=== PATIENT | male | born 1960 | race African-American/Black ===

== ENCOUNTER 2016-06-28 15:45 | Emergency (ER) | payer MEDICARE, MEDICAID ==
[~2016-06-28] VITALS: Ht 162.6 cm; Wt 60.0 kg
[~2016-06-28 15:45] MED LIST: AMLO10TA80 PO; Benazepril Hcl PO
[2016-06-28 17:22] VITALS: BP 137/72
== END 2016-06-28 17:34 | disposition home or self-care (01) ==
LOC: ER 15:46
DX: T82.838A Hemorrhage due to vascular prosthetic devices, implants and grafts, initial encounter (principal); N18.6 End stage renal disease; I51.9 Heart disease, unspecified; Z99.2 Dependence on renal dialysis; Z95.1 Presence of aortocoronary bypass graft; Z88.3 Allergy status to other anti-infective agents; Z98.890 Other specified postprocedural states; Y84.1 Kidney dialysis as the cause of abnormal reaction of the patient, or of later complication, without mention of misadventure at the time of the procedure; Y92.018 Other place in single-family (private) house as the place of occurrence of the external cause
CPT/HCPCS: 99283

== ENCOUNTER 2016-10-16 10:41 | Emergency (ER) | payer MEDICARE, MEDICAID ==
[~2016-10-16] VITALS: Ht 170.2 cm; Wt 70.0 kg
[2016-10-16 11:29] LABS: HEMATOCRIT. 33.4 % (42.0-52.0); HEMOGLOBIN. 10.6 g/dL (14.0-18.0); MEAN CORPUSCULAR HEMOGLOBIN 32.6 pg (28.0-32.0); MEAN CORPUSCULAR VOLUME 102.4 fL (80.0-94.0); MEAN PLATELET VOLUME 6.6 fl (7.4-10.4); PLATELET 264 x1000/uL (130-400); RED BLOOD CELL COUNT 3.26 mill/uL (4.7-6.1); RED CELL DISTRIBUTION WIDTH 15.3 % (11.6-14.6)
[2016-10-16 11:33] LABS: CHLORIDE 108 mEq/L (98-107)
[2016-10-16 11:41] LABS: CARBON DIOXIDE 24 mEq/L (21-32); INR 1.1; PROTHROMBIN TIME 11.1 sec
[2016-10-16 11:57] LABS: PLATELET ESTIMATE NORMAL
[2016-10-16 12:44] VITALS: BP 169/86
== END 2016-10-16 12:45 | disposition home or self-care (01) ==
LOC: ER 10:41
DX: T82.838A Hemorrhage due to vascular prosthetic devices, implants and grafts, initial encounter (principal); I13.2 Hypertensive heart and chronic kidney disease with heart failure and with stage 5 chronic kidney disease, or end stage renal disease; N18.6 End stage renal disease; Z99.2 Dependence on renal dialysis; Z88.1 Allergy status to other antibiotic agents; Z95.1 Presence of aortocoronary bypass graft; Y84.1 Kidney dialysis as the cause of abnormal reaction of the patient, or of later complication, without mention of misadventure at the time of the procedure; Y92.89 Other specified places as the place of occurrence of the external cause
CPT/HCPCS: 36415; 80053; 85025; 85610; 99284

== ENCOUNTER 2016-10-22 11:38 | Emergency (ER) | payer MEDICARE, MEDICAID ==
[~2016-10-22] VITALS: Ht 160 cm; Wt 63.0 kg
[2016-10-22 11:43] VITALS: BP 170/78
== END 2016-10-22 14:24 | disposition home or self-care (01) ==
LOC: ER 14:04
DX: T82.41XA Breakdown (mechanical) of vascular dialysis catheter, initial encounter (principal); I10 Essential (primary) hypertension; Z88.0 Allergy status to penicillin; Z99.2 Dependence on renal dialysis
CPT/HCPCS: 99281

== ENCOUNTER 2017-03-06 11:42 | Emergency (ER) | payer MEDICARE, MEDICAID ==
[~2017-03-06] VITALS: Ht 160 cm; Wt 64.0 kg
[2017-03-06] MEDS ORDERED: SIMETHICONE 80MG TABLET CHEW PO PRN (14:30)
[2017-03-06 16:11] VITALS: BP 135/87
== END 2017-03-06 17:07 | disposition home or self-care (01) ==
LOC: ER 12:13
DX: R10.30 Lower abdominal pain, unspecified (principal); R19.7 Diarrhea, unspecified; I12.0 Hypertensive chronic kidney disease with stage 5 chronic kidney disease or end stage renal disease; N18.6 End stage renal disease; Z99.2 Dependence on renal dialysis; Z95.1 Presence of aortocoronary bypass graft; Z88.0 Allergy status to penicillin; Z87.891 Personal history of nicotine dependence
CPT/HCPCS: 74000; 99283

== ENCOUNTER 2018-09-22 11:16 | Inpatient (IN) | payer MEDICARE, MEDICAID ==
[~2018-09-22] VITALS: Ht 160 cm; Wt 63.5 kg
[2018-09-22] MEDS ORDERED: MORPHINE SULFATE 4 MG/ML CPJ (NOT FOR IM USE) IV STA (12:40)
[2018-09-22] MEDS ORDERED: ONDANSETRON HCL 4MG/2ML INJ IV STA (12:40)
[2018-09-22] MEDS ORDERED: PANTOPRAZOLE SODIUM 40 MG/VIAL IV STA (12:40)
[2018-09-22 12:51] LABS: EOSINOPHILS % 2.5 % (0.0-5.0); HEMATOCRIT. 36.8 % (42.0-52.0); LYMPHOCYTES % 7.5 % (20.0-50.0); MEAN CORPUSCULAR HEMOGLOBIN 32.3 pg (28.0-32.0); MEAN CORPUSCULAR VOLUME 99.3 fL (80.0-94.0); MEAN PLATELET VOLUME 7.1 fl (7.4-10.4); MONOCYTES % 10.6 % (2.0-8.0); NEUTROPHILS % 78.4 % (40.0-76.0); PLATELET 252 x1000/uL (130-400); RED BLOOD CELL COUNT 3.71 mill/uL (4.7-6.1); RED CELL DISTRIBUTION WIDTH 17.9 % (11.6-14.6)
[2018-09-22 13:00] LABS: CHLORIDE 106 mEq/L (98-107)
[2018-09-22 13:08] LABS: INR 1.1; PARTIAL THROMBOPLASTIN TIME 33.2 sec (23.4-31.0); PROTHROMBIN TIME 10.9 sec (9.6-11.0)
[2018-09-22] MEDS ORDERED: DIPHENHYDRAMINE 50MG/ML VIAL IV ONE (13:15)
[2018-09-22] MEDS ORDERED: ONDANSETRON HCL 4MG/2ML INJ IV PRN (14:30)
[2018-09-22] MEDS ORDERED: METRONIDAZOLE 500 MG PREMIX 100 ML IV ONE (14:30)
[2018-09-22] MEDS ORDERED: LEVOFLOXACIN 500MG PREMIX 100 ML IV ONE (14:30)
[2018-09-22] MEDS ORDERED: ACETAMINOPHEN 325MG TABLET PO PRN (14:30)
[2018-09-22] MEDS ORDERED: MAGNESIUM/ALUMINUM HYDROXIDE/SIMETHICONE 30ML UDC PO PRN (14:30)
[2018-09-22 16:30] VITALS: BP 135/77
[2018-09-22] MEDS ORDERED: LEVOFLOXACIN 500MG PREMIX 100 ML IV SCH (18:00)
[2018-09-22] MEDS: BENAZEPRIL 10MG TABLET PO SCH (18:07)
[2018-09-22] MEDS: DIPHENHYDRAMINE 50MG/ML VIAL IV PRN ×2 (18:07→20:15)
[2018-09-22] MEDS: AMLODIPINE 10MG TABLET PO SCH (18:08)
[2018-09-22] MEDS ORDERED: METO25TA6 MT (18:41)
[2018-09-22] MEDS ORDERED: APIX2.5T MT (18:41)
[2018-09-22] MEDS ORDERED: [UNRECOGNIZED DRUG - OTHER] (18:41)
[2018-09-22] MEDS ORDERED: MORPHINE SULFATE 2 MG/ML CPJ (NOT FOR IM USE) IV PRN (19:00)
[2018-09-22 20:00] VITALS: BP 110/63
[2018-09-22] MEDS: METRONIDAZOLE 500 MG PREMIX 100 ML IV SCH (20:14)
[2018-09-22] MEDS: PANTOPRAZOLE SODIUM 40 MG/VIAL IV SCH (20:15)
[2018-09-23] VITALS: BP 100/57
[2018-09-23 04:00] VITALS: BP 101/53
[2018-09-23 06:42] LABS: BASOPHILS % 0.6 % (0.0-2.0); EOSINOPHILS % 5.3 % (0.0-5.0); HEMATOCRIT. 30.7 % (42.0-52.0); LYMPHOCYTES % 9.1 % (20.0-50.0); MEAN CORPUSCULAR HEMOGLOBIN 32.3 pg (28.0-32.0); MEAN CORPUSCULAR VOLUME 99.2 fL (80.0-94.0); MEAN PLATELET VOLUME 7.2 fl (7.4-10.4); MONOCYTES % 14.6 % (2.0-8.0); NEUTROPHILS % 70.4 % (40.0-76.0); PLATELET 232 x1000/uL (130-400); RED CELL DISTRIBUTION WIDTH 18.6 % (11.6-14.6)
[2018-09-23 07:49] LABS: CHLORIDE 106 mEq/L (98-107)
[2018-09-23 08:00] VITALS: BP 95/50
[2018-09-23] MEDS: DIPHENHYDRAMINE 50MG/ML VIAL IV PRN ×3 (08:30→20:29)
[2018-09-23] MEDS: METRONIDAZOLE 500 MG PREMIX 100 ML IV SCH ×2 (08:30→22:18)
[2018-09-23] MEDS: PANTOPRAZOLE SODIUM 40 MG/VIAL IV SCH ×2 (08:30→20:28)
[2018-09-23] MEDS: BENAZEPRIL 10MG TABLET PO SCH (08:31)
[2018-09-23] MEDS: AMLODIPINE 10MG TABLET PO SCH (08:31)
[2018-09-23] MEDS ORDERED: HYDROCODONE/ACETAMINOPHEN 5/325MG TABLET PO PRN (10:45)
[2018-09-23 11:45] VITALS: BP 104/61
[2018-09-23 15:48] VITALS: BP 105/64
[2018-09-23 20:00] VITALS: BP 103/57
[2018-09-24] VITALS: BP 108/80
[2018-09-24 04:00] VITALS: BP 102/58
[2018-09-24 06:22] LABS: HEMATOCRIT 33.3 % (42.0-52.0); HEMOGLOBIN 10.9 g/dL (14.0-18.0); MEAN CORPUSCULAR HEMOGLOBIN 32.5 pg (28.0-32.0); MEAN CORPUSCULAR VOLUME 98.9 fL (80.0-94.0); PLATELET 252 x1000/uL (130-400); RED BLOOD CELL COUNT 3.37 mill/uL (4.7-6.1); RED CELL DISTRIBUTION WIDTH 18.7 % (11.6-14.6)
[2018-09-24 08:00] VITALS: BP 110/65
[2018-09-24] MEDS: AMLODIPINE 10MG TABLET PO SCH (09:00)
[2018-09-24] MEDS: BENAZEPRIL 10MG TABLET PO SCH (09:00)
[2018-09-24] MEDS: PANTOPRAZOLE SODIUM 40 MG/VIAL IV SCH ×2 (09:39→22:29)
[2018-09-24] MEDS: METRONIDAZOLE 500 MG PREMIX 100 ML IV SCH ×2 (09:44→22:29)
[2018-09-24] MEDS: DIPHENHYDRAMINE 50MG/ML VIAL IV PRN ×2 (09:55→22:30)
[2018-09-24] MEDS: DOCUSATE SODIUM 100MG CAPSULE PO SCH ×2 (13:19→17:41)
[2018-09-24 16:00] VITALS: BP_SYST 114; BP_SYST 118; BP_DIAS 66
[2018-09-24] MEDS ORDERED: LEVOFLOXACIN 250MG PREMIX 50 ML IV SCH (18:00)
[2018-09-24 20:00] VITALS: BP 104/60
[2018-09-24] MEDS ORDERED: DOCU-138 PO (20:08)
[2018-09-24] MEDS ORDERED: METR500T MT (20:08)
[2018-09-24] MEDS ORDERED: LEVO500T2 PO (20:08)
[2018-09-24] MEDS ORDERED: EPOETIN ALFA 4000UNITS/ML VIAL SUBCUT SCH (21:00)
[2018-09-25] VITALS: BP 105/54
[2018-09-25 04:00] VITALS: BP 108/55
[2018-09-25] MEDS: DIPHENHYDRAMINE 50MG/ML VIAL IV PRN ×2 (04:23→10:49)
[2018-09-25 08:00] VITALS: BP 112/67
[2018-09-25] MEDS: AMLODIPINE 10MG TABLET PO SCH (08:15)
[2018-09-25] MEDS: BENAZEPRIL 10MG TABLET PO SCH (08:15)
[2018-09-25] MEDS: PANTOPRAZOLE SODIUM 40 MG/VIAL IV SCH (08:16)
[2018-09-25] MEDS: DOCUSATE SODIUM 100MG CAPSULE PO SCH (08:16)
[2018-09-25] MEDS: METRONIDAZOLE 500 MG PREMIX 100 ML IV SCH (10:42)
[2018-09-25 12:00] VITALS: BP 102/61
[2018-09-25 14:04] VITALS: BP 102/61
[2018-09-26] MEDS ORDERED: METRONIDAZOLE 500MG TABLET PO SCH (09:00)
[2018-09-26] MEDS ORDERED: LEVOFLOXACIN 250MG TABLET PO SCH (11:00)
== END 2018-09-25 15:04 | disposition home or self-care (01) | DRG 377 ==
LOC: ER 12:42 → EDBEDREQ 13:25 → EDBEDREQTM 13:25 → ENRESERV 14:55 → 8WST 16:46
PROVIDERS: ADMIT Internal Medicine; ATTEND Internal Medicine
PROC: 5A1D70Z Performance of Urinary Filtration, Intermittent, Less than 6 Hours Per Day (ICD-10-PCS; principal; 2018-09-24)
DX: K57.33 Diverticulitis of large intestine without perforation or abscess with bleeding (principal); N18.6 End stage renal disease; I13.2 Hypertensive heart and chronic kidney disease with heart failure and with stage 5 chronic kidney disease, or end stage renal disease; I50.9 Heart failure, unspecified; D50.0 Iron deficiency anemia secondary to blood loss (chronic); D63.1 Anemia in chronic kidney disease; K59.09 Other constipation; Z99.2 Dependence on renal dialysis; Z79.899 Other long term (current) drug therapy; Z95.1 Presence of aortocoronary bypass graft; Z88.0 Allergy status to penicillin
CPT/HCPCS: 36415; 71045; 74176; 80048; 84484; 85027; 86850; 86900; 93005; 99285; C9113; J1200; J1956; J2270; J2405; J3490; J7050

== ENCOUNTER 2019-06-07 15:42 | Inpatient (IN) | payer MEDICARE, MEDICAID ==
[~2019-06-07] VITALS: Ht 157.5 cm; Wt 71.2 kg
[~2019-06-07 15:42] MED LIST changes: -AMLO10TA80 PO; +AMLO2.5T45 MT; +APIX5TAB PO; -Benazepril Hcl PO; +DEXTL PO; +DOCU-138 PO; +HYDR-3735 PO; +LEVO500T2 PO
[2019-06-07] MEDS ORDERED: SODIUM CHLORIDE 0.9% 500 ML IV ONE (18:04)
[2019-06-07 18:06] LABS: HEMATOCRIT. 38.2 % (42.0-52.0); HEMOGLOBIN. 12.6 g/dL (14.0-18.0); MEAN CORPUSCULAR HEMOGLOBIN 34.6 pg (28.0-32.0); MEAN CORPUSCULAR VOLUME 105.1 fL (80.0-94.0); MEAN PLATELET VOLUME 7.9 fl (7.4-10.4); PLATELET 164 x1000/uL (130-400); RED BLOOD CELL COUNT 3.64 mill/uL (4.7-6.1)
[2019-06-07 18:08] LABS: CHLORIDE 106 mEq/L (98-107)
[2019-06-07 18:11] LABS: PROTHROMBIN TIME 11.2 sec (9.6-11.0)
[2019-06-07 19:22] LABS: PLATELET ESTIMATE NORMAL
[2019-06-07] MEDS ORDERED: LEVOFLOXACIN 500MG PREMIX 100 ML IV ONE (22:00)
[2019-06-07] MEDS ORDERED: VANCOMYCIN 1 G PREMIX 200 ML IV SCH (22:00)
[2019-06-08] VITALS (7 sets, daily range): BP systolic 98–120; BP diastolic 46–58
[2019-06-08] MEDS ORDERED: ACETAMINOPHEN 325MG TABLET PO PRN (03:15)
[2019-06-08] MEDS ORDERED: GUAIFENESIN 200MG/10ML SUGAR FREE UDC PO PRN (03:15)
[2019-06-08] MEDS: APIXABAN 5 MG TABLET PO SCH ×2 (09:17→17:04)
[2019-06-08] MEDS: DOCUSATE SODIUM 100MG CAPSULE PO SCH ×2 (09:17→17:04)
[2019-06-08] MEDS ORDERED: ALBUTEROL 6.7GM HFA INHALER ORI PRN (13:00)
[2019-06-08] MEDS ORDERED: IPRATROPIUM/ALBUTEROL 0.5-3(2.5)MG/3ML NEB HHN PRN (13:15)
[2019-06-08] MEDS ORDERED: ONDANSETRON HCL 4MG/2ML INJ IV PRN (16:45)
[2019-06-08] MEDS: CEFTRIAXONE 1 G PREMIX 50 ML IV SCH (17:54)
[2019-06-09] VITALS: BP 117/55
[2019-06-09 04:00] VITALS: BP 102/55
[2019-06-09 08:00] VITALS: BP_SYST 113; BP_SYST 129; BP_DIAS 62; BP_DIAS 64
[2019-06-09] MEDS: APIXABAN 5 MG TABLET PO SCH ×2 (08:36→16:35)
[2019-06-09] MEDS: DOCUSATE SODIUM 100MG CAPSULE PO SCH ×2 (08:36→16:35)
[2019-06-09 12:00] VITALS: BP 108/39
[2019-06-09] MEDS: CEFTRIAXONE 1 G PREMIX 50 ML IV SCH (13:37)
[2019-06-09 16:00] VITALS: BP 112/57
[2019-06-09] MEDS: AZITHROMYCIN 500 MG TABLET PO SCH (16:35)
[2019-06-09 16:42] LABS: HEMATOCRIT. 39.4 % (42.0-52.0); HEMOGLOBIN. 12.6 g/dL (14.0-18.0); MEAN CORPUSCULAR HEMOGLOBIN 34.3 pg (28.0-32.0); MEAN CORPUSCULAR VOLUME 107.1 fL (80.0-94.0); MEAN PLATELET VOLUME 7.9 fl (7.4-10.4); PLATELET 157 x1000/uL (130-400); RED BLOOD CELL COUNT 3.68 mill/uL (4.7-6.1); RED CELL DISTRIBUTION WIDTH 15.7 % (11.6-14.6)
[2019-06-09 20:00] VITALS: BP 106/54
[2019-06-10] VITALS: BP 109/56
[2019-06-10 00:25] LABS: PLATELET ESTIMATE NORMAL
[2019-06-10 04:00] VITALS: BP 102/51
[2019-06-10 08:00] VITALS: BP 117/61
[2019-06-10] MEDS: DOCUSATE SODIUM 100MG CAPSULE PO SCH ×2 (08:23→18:10)
[2019-06-10] MEDS: AZITHROMYCIN 500 MG TABLET PO SCH (08:23)
[2019-06-10] MEDS: APIXABAN 5 MG TABLET PO SCH ×2 (08:23→18:10)
[2019-06-10 12:00] VITALS: BP_SYST 108; BP_SYST 114; BP_SYST 123; BP_DIAS 53; BP_DIAS 56; BP_DIAS 61
[2019-06-10] MEDS: CEFTRIAXONE 1 G PREMIX 50 ML IV SCH (13:16)
[2019-06-10 16:00] VITALS: BP 109/61
[2019-06-10 20:00] VITALS: BP_SYST 103; BP_SYST 118; BP_SYST 124; BP_DIAS 62; BP_DIAS 63; BP_DIAS 67
[2019-06-11] VITALS: BP 100/65
[2019-06-11 04:00] VITALS: BP 104/58
[2019-06-11 08:00] VITALS: BP 121/43
[2019-06-11] MEDS: AZITHROMYCIN 500 MG TABLET PO SCH (09:52)
[2019-06-11] MEDS: APIXABAN 5 MG TABLET PO SCH (09:52)
[2019-06-11] MEDS: DOCUSATE SODIUM 100MG CAPSULE PO SCH (09:52)
[2019-06-11 11:05] LABS: BASOPHILS % 1.2 % (0.0-2.0); EOSINOPHILS % 7.6 % (0.0-5.0); HEMATOCRIT. 38.3 % (42.0-52.0); HEMOGLOBIN. 12.4 g/dL (14.0-18.0); LYMPHOCYTES % 15.9 % (20.0-50.0); MEAN CORPUSCULAR HEMOGLOBIN 34.1 pg (28.0-32.0); MEAN CORPUSCULAR VOLUME 104.9 fL (80.0-94.0); MEAN PLATELET VOLUME 7.7 fl (7.4-10.4); MONOCYTES % 11.9 % (2.0-8.0); NEUTROPHILS % 63.4 % (40.0-76.0); PLATELET 185 x1000/uL (130-400); RED BLOOD CELL COUNT 3.65 mill/uL (4.7-6.1); RED CELL DISTRIBUTION WIDTH 15.4 % (11.6-14.6)
[2019-06-11 12:00] VITALS: BP 145/74
[2019-06-11] MEDS ORDERED: DOXY-244 MT (13:09)
[2019-06-11] MEDS ORDERED: P50 MT (13:09)
[2019-06-11] MEDS: CEFTRIAXONE 1 G PREMIX 50 ML IV SCH (14:19)
[2019-06-11 15:20] VITALS: BP 138/62
[2019-06-11 16:00] VITALS: BP 111/52
== END 2019-06-11 16:25 | disposition home or self-care (01) | DRG 871 ==
LOC: ER 15:42 → EDBEDREQ 22:32 → EDBEDREQTM 22:37 → EDBEDREQSVC 22:37 → CANRESERV 23:00 → ENRESERV 23:00 → 7EST 06-08 02:28
PROVIDERS: ADMIT Specialist; ATTEND Specialist
PROC: 5A1D70Z Performance of Urinary Filtration, Intermittent, Less than 6 Hours Per Day (ICD-10-PCS; principal; 2019-06-10)
DX: A41.9 Sepsis, unspecified organism (principal); R65.21 Severe sepsis with septic shock; N18.6 End stage renal disease; J96.00 Acute respiratory failure, unspecified whether with hypoxia or hypercapnia; I50.23 Acute on chronic systolic (congestive) heart failure; I42.9 Cardiomyopathy, unspecified; I13.2 Hypertensive heart and chronic kidney disease with heart failure and with stage 5 chronic kidney disease, or end stage renal disease; J44.0 Chronic obstructive pulmonary disease with (acute) lower respiratory infection; J44.1 Chronic obstructive pulmonary disease with (acute) exacerbation; B34.9 Viral infection, unspecified; D63.8 Anemia in other chronic diseases classified elsewhere; E78.5 Hyperlipidemia, unspecified; E87.70 Fluid overload, unspecified; G90.8 Other disorders of autonomic nervous system; I25.10 Atherosclerotic heart disease of native coronary artery without angina pectoris; D50.9 Iron deficiency anemia, unspecified; K57.90 Diverticulosis of intestine, part unspecified, without perforation or abscess without bleeding; E21.3 Hyperparathyroidism, unspecified; J20.9 Acute bronchitis, unspecified; E86.1 Hypovolemia; Z79.01 Long term (current) use of anticoagulants; Z87.01 Personal history of pneumonia (recurrent); Z99.2 Dependence on renal dialysis; Z88.1 Allergy status to other antibiotic agents; Z79.899 Other long term (current) drug therapy
CPT/HCPCS: 36415; 71045; 80048; 80053; 80202; 83605; 83880; 84145; 84484; 85025; 87635; 87804; 93005; 96365; 99291; J0696; J1956; J3370; J7040; U0002

== ENCOUNTER 2019-07-17 18:21 | Emergency (ER) | payer MEDICARE, MEDICAID ==
[~2019-07-17] VITALS: Ht 170.2 cm; Wt 67.0 kg
[~2019-07-17 18:21] MED LIST changes: -AMLO2.5T45 MT; +DOXY-244 MT; -HYDR-3735 PO; -LEVO500T2 PO; +P50 MT
[2019-07-17 19:17] VITALS: BP 109/65
== END 2019-07-17 21:29 | disposition home or self-care (01) ==
LOC: ER 18:21
DX: T82.838A Hemorrhage due to vascular prosthetic devices, implants and grafts, initial encounter (principal); Y82.8 Other medical devices associated with adverse incidents; Y92.89 Other specified places as the place of occurrence of the external cause; N18.6 End stage renal disease; Z99.2 Dependence on renal dialysis
CPT/HCPCS: 99283

== ENCOUNTER 2019-10-20 09:47 | Inpatient (IN) | payer MEDICARE, MEDICAID ==
[~2019-10-20] VITALS: Ht 157.5 cm; Wt 69.9 kg
[2019-10-20] MEDS ORDERED: MORPHINE SULFATE 4 MG/ML CPJ (NOT FOR IM USE) IV STA (10:29)
[2019-10-20] MEDS ORDERED: ONDANSETRON HCL 4MG/2ML INJ IV STA (10:29)
[2019-10-20] MEDS ORDERED: SODIUM CHLORIDE 0.9% 1,000 ML IV ONE (10:29)
[2019-10-20 11:00] LABS: BASOPHILS % 0.5 % (0.0-2.0); EOSINOPHILS % 2.4 % (0.0-5.0); HEMATOCRIT. 37.1 % (42.0-52.0); HEMOGLOBIN. 12.2 g/dL (14.0-18.0); LYMPHOCYTES % 9.7 % (20.0-50.0); MEAN CORPUSCULAR HEMOGLOBIN 34.5 pg (28.0-32.0); MEAN CORPUSCULAR VOLUME 105.2 fL (80.0-94.0); MEAN PLATELET VOLUME 7.4 fl (7.4-10.4); MONOCYTES % 11.6 % (2.0-8.0); NEUTROPHILS % 75.8 % (40.0-76.0); PLATELET 209 x1000/uL (130-400); RED BLOOD CELL COUNT 3.52 mill/uL (4.7-6.1); RED CELL DISTRIBUTION WIDTH 16.2 % (11.6-14.6)
[2019-10-20 11:08] LABS: CHLORIDE 108 mEq/L (98-107)
[2019-10-20 11:14] LABS: PARTIAL THROMBOPLASTIN TIME 34.7 sec (23.4-31.0); PROTHROMBIN TIME 10.9 sec (9.6-11.0)
[2019-10-20] MEDS ORDERED: AZTREONAM 1 G in DEXTROSE 5% WATER 50 ML IV STA ×2 (12:22→13:07)
[2019-10-20] MEDS ORDERED: METRONIDAZOLE 500 MG PREMIX 100 ML IV ONE (12:30)
[2019-10-20] MEDS ORDERED: DIPHENHYDRAMINE 50MG/ML VIAL IV ONE (13:30)
[2019-10-20] MEDS ORDERED: DOCUSATE SODIUM 100MG CAPSULE PO PRN (14:30)
[2019-10-20] MEDS ORDERED: ONDANSETRON HCL 4MG/2ML INJ IV PRN (14:30)
[2019-10-20] MEDS ORDERED: MORPHINE SULFATE 2 MG/ML CPJ (NOT FOR IM USE) IV PRN (14:30)
[2019-10-20] MEDS ORDERED: CLONIDINE 0.1MG TABLET PO PRN (14:30)
[2019-10-20] MEDS ORDERED: AZTREONAM 1 G in DEXTROSE 5% WATER 50 ML IV SCH (14:30)
[2019-10-20] MEDS ORDERED: MAGNESIUM/ALUMINUM HYDROXIDE/SIMETHICONE 30ML UDC PO PRN (14:30)
[2019-10-20] MEDS ORDERED: ACETAMINOPHEN 325MG TABLET PO PRN (14:30)
[2019-10-20] MEDS ORDERED: IPRATROPIUM/ALBUTEROL 0.5-3(2.5)MG/3ML NEB HHN PRN (14:30)
[2019-10-20] MEDS ORDERED: HYDROCODONE/ACETAMINOPHEN 5/325MG TABLET PO PRN (14:30)
[2019-10-20 15:42] LABS: TOTAL IRON BINDING CAPACITY 153 ug/dL (250-450)
[2019-10-20] MEDS: DEXT 5%/0.45% NACL 1000ML 1,000 ML IV SCH ×2 (16:18→22:39)
[2019-10-20] MEDS: PANTOPRAZOLE SODIUM 40 MG/VIAL IV SCH (17:42)
[2019-10-20] MEDS ORDERED: AZTREONAM 500MG in DEXTROSE 5% WATER 50ML IV SCH (18:00)
[2019-10-20] MEDS ORDERED: METOCLOPRAMIDE HCL 10MG/2ML VIAL IV SCH (19:30)
[2019-10-20 20:00] VITALS: BP 140/46
[2019-10-20] MEDS ORDERED: BISACODYL 5MG TABLET PO SCH (20:00)
[2019-10-20 20:15] VITALS: BP 140/46
[2019-10-20] MEDS ORDERED: SORBITOL 70% SOLN 30ML PO SCH (20:15)
[2019-10-20 20:30] VITALS: BP 140/46
[2019-10-20] MEDS ORDERED: METRONIDAZOLE 500 MG PREMIX 100 ML IV SCH (22:00)
[2019-10-20] MEDS: AZTREONAM 500MG in DEXTROSE 5% WATER 50ML IV SCH (22:39)
[2019-10-20] MEDS: METRONIDAZOLE 500 MG PREMIX 100 ML IV SCH (22:40)
[2019-10-20] MEDS: DIPHENHYDRAMINE 50MG/ML VIAL IV PRN (23:38)
[2019-10-21] VITALS (8 sets, daily range): BP systolic 90–148; BP diastolic 40–77
[2019-10-21 06:28] LABS: EOSINOPHILS % 11.2 % (0.0-5.0); HEMATOCRIT. 31.4 % (42.0-52.0); HEMOGLOBIN. 10.2 g/dL (14.0-18.0); LYMPHOCYTES % 12.6 % (20.0-50.0); MEAN CORPUSCULAR HEMOGLOBIN 33.9 pg (28.0-32.0); MEAN CORPUSCULAR VOLUME 104.2 fL (80.0-94.0); MEAN PLATELET VOLUME 7.3 fl (7.4-10.4); NEUTROPHILS % 62.2 % (40.0-76.0); PLATELET 217 x1000/uL (130-400); RED BLOOD CELL COUNT 3.01 mill/uL (4.7-6.1); RED CELL DISTRIBUTION WIDTH 16.2 % (11.6-14.6)
[2019-10-21 06:49] LABS: INR 1.1; PROTHROMBIN TIME 11.1 sec (9.6-11.0)
[2019-10-21 07:05] LABS: CHLORIDE 109 mEq/L (98-107)
[2019-10-21 07:12] LABS: LDL CHOLESTEROL 59 mg/dL (5-100); PHOSPHORUS 3.7 mg/dL (2.5-4.9)
[2019-10-21 07:13] LABS: TOTAL IRON BINDING CAPACITY 128 ug/dL (250-450)
[2019-10-21 07:16] LABS: HDL CHOLESTEROL 51 mg/dL (40-59)
[2019-10-21] MEDS: PANTOPRAZOLE SODIUM 40 MG/VIAL IV SCH ×2 (09:22→17:55)
[2019-10-21] MEDS: AZTREONAM 500MG in DEXTROSE 5% WATER 50ML IV SCH ×2 (09:22→22:18)
[2019-10-21] MEDS: DIPHENHYDRAMINE 50MG/ML VIAL IV PRN ×2 (09:58→19:36)
[2019-10-21 11:24] LABS: VITAMIN B12 SERUM 183 pg/mL (211-911)
[2019-10-21] MEDS: METRONIDAZOLE 500 MG PREMIX 100 ML IV SCH ×2 (11:52→21:50)
[2019-10-21] MEDS ORDERED: METR500T MT (13:41)
[2019-10-21] MEDS ORDERED: FERR325T6 MT (13:41)
[2019-10-21] MEDS ORDERED: SULF1TAB48 MT (13:41)
[2019-10-22 09:09] LABS: FOLATE HEMATOCRIT 31.6 % (37.5-51.0)
[2019-10-22 13:07] LABS: FOLATE RBC 725 ng/mL (>498)
[2019-11-19] MEDS ORDERED: SULF1TAB48 MT (12:18)
[2019-11-19] MEDS ORDERED: METR500T MT (12:18)
[2019-11-19] MEDS ORDERED: DOXY100C42 MT (13:48)
== END 2019-10-21 22:30 | disposition home or self-care (01) | DRG 377 ==
LOC: ER 10:12 → 5WST 13:20 → EDBEDREQTM 13:25 → ENRESERV 19:38
PROVIDERS: ADMIT Family Medicine Adult Medicine; ATTEND Family Medicine Adult Medicine
PROC: 5A1D70Z Performance of Urinary Filtration, Intermittent, Less than 6 Hours Per Day (ICD-10-PCS; principal; 2019-10-20)
DX: K57.33 Diverticulitis of large intestine without perforation or abscess with bleeding (principal); N18.6 End stage renal disease; D62 Acute posthemorrhagic anemia; I13.2 Hypertensive heart and chronic kidney disease with heart failure and with stage 5 chronic kidney disease, or end stage renal disease; D63.1 Anemia in chronic kidney disease; E87.5 Hyperkalemia; I25.10 Atherosclerotic heart disease of native coronary artery without angina pectoris; I50.9 Heart failure, unspecified; Z79.01 Long term (current) use of anticoagulants; Z82.49 Family history of ischemic heart disease and other diseases of the circulatory system; Z99.2 Dependence on renal dialysis; Z88.1 Allergy status to other antibiotic agents; Z79.899 Other long term (current) drug therapy
CPT/HCPCS: 36415; 71045; 74176; 76705; 80053; 80061; 82140; 82270; 82607; 82728; 82747; 83540; 83550; 83735; 83880; 84100; 84443; 84484; 85014; 85025; 93005; 93970; 96365; 97162; 97166; 99285; C9113; J1200; J2270; J2405; J3490; J7030; J7060

== ENCOUNTER 2019-11-17 08:24 | Inpatient (IN) | payer MEDICARE, MEDICAID ==
[~2019-11-17] VITALS: Ht 160 cm; Wt 68.0 kg
[~2019-11-17 08:24] MED LIST changes: -APIX5TAB PO; -DEXTL PO; -DOXY-244 MT; +FERR325T6 MT; +METR500T MT; -P50 MT; +SULF1TAB48 MT
[2019-11-17 09:24] LABS: BASOPHILS % 1.3 % (0.0-2.0); EOSINOPHILS % 5.9 % (0.0-5.0); HEMATOCRIT. 34.5 % (42.0-52.0); HEMOGLOBIN. 11.4 g/dL (14.0-18.0); LYMPHOCYTES % 12.8 % (20.0-50.0); MEAN CORPUSCULAR HEMOGLOBIN 34.9 pg (28.0-32.0); MEAN CORPUSCULAR VOLUME 105.4 fL (80.0-94.0); MEAN PLATELET VOLUME 6.9 fl (7.4-10.4); MONOCYTES % 12.9 % (2.0-8.0); NEUTROPHILS % 67.1 % (40.0-76.0); PLATELET 213 x1000/uL (130-400); RED BLOOD CELL COUNT 3.28 mill/uL (4.7-6.1); RED CELL DISTRIBUTION WIDTH 16.1 % (11.6-14.6)
[2019-11-17 09:33] LABS: CHLORIDE 106 mEq/L (98-107)
[2019-11-17] MEDS ORDERED: ONDANSETRON HCL 4MG/2ML INJ IV PRN (12:15)
[2019-11-17] MEDS ORDERED: ACETAMINOPHEN 325MG TABLET PO PRN (12:15)
[2019-11-17] MEDS: PANTOPRAZOLE SODIUM 40 MG/VIAL IV SCH (13:17)
[2019-11-17] MEDS: DIPHENHYDRAMINE 50MG/ML VIAL IV PRN ×2 (13:41→20:07)
[2019-11-17 17:00] VITALS: BP 136/56
[2019-11-17] MEDS ORDERED: DIATR MEGLU/DIATRIZOATE SOLN 30ML ONE (17:21)
[2019-11-17 17:25] VITALS: BP 136/56
[2019-11-17] MEDS: DIATR MEGLU/DIATRIZOATE SOLN 30ML PO NR ×2 (18:54→20:02)
[2019-11-17 20:28] VITALS: BP 137/53
[2019-11-17 20:41] LABS: HEMATOCRIT. 34.9 % (42.0-52.0); HEMOGLOBIN. 11.3 g/dL (14.0-18.0); MEAN CORPUSCULAR VOLUME 105.2 fL (80.0-94.0); PLATELET 206 x1000/uL (130-400); RED BLOOD CELL COUNT 3.31 mill/uL (4.7-6.1); RED CELL DISTRIBUTION WIDTH 16.4 % (11.6-14.6)
[2019-11-17 20:47] LABS: TOTAL IRON BINDING CAPACITY 190 ug/dL (250-450)
[2019-11-17] MEDS ORDERED: TRAZODONE HCL 50MG TABLET PO PRN (21:00)
[2019-11-17 22:44] LABS: PLATELET ESTIMATE NORMAL
[2019-11-18] VITALS: BP 128/70
[2019-11-18 00:59] LABS: HEMATOCRIT. 33.9 % (42.0-52.0); HEMOGLOBIN. 11.2 g/dL (14.0-18.0); MEAN CORPUSCULAR HEMOGLOBIN 34.6 pg (28.0-32.0); MEAN CORPUSCULAR VOLUME 104.5 fL (80.0-94.0); MEAN PLATELET VOLUME 6.9 fl (7.4-10.4); PLATELET 213 x1000/uL (130-400); RED BLOOD CELL COUNT 3.24 mill/uL (4.7-6.1); RED CELL DISTRIBUTION WIDTH 16.6 % (11.6-14.6)
[2019-11-18] MEDS: DIPHENHYDRAMINE 50MG/ML VIAL IV PRN ×4 (03:22→23:01)
[2019-11-18 04:00] VITALS: BP 131/68
[2019-11-18 06:13] LABS: HEMATOCRIT. 31.9 % (42.0-52.0); HEMOGLOBIN. 10.5 g/dL (14.0-18.0); MEAN CORPUSCULAR HEMOGLOBIN 34.5 pg (28.0-32.0); MEAN CORPUSCULAR VOLUME 104.4 fL (80.0-94.0); MEAN PLATELET VOLUME 6.9 fl (7.4-10.4); PLATELET 206 x1000/uL (130-400); RED BLOOD CELL COUNT 3.05 mill/uL (4.7-6.1); RED CELL DISTRIBUTION WIDTH 16.4 % (11.6-14.6)
[2019-11-18 06:23] LABS: CHLORIDE 105 mEq/L (98-107)
[2019-11-18 08:00] VITALS: BP 134/61
[2019-11-18] MEDS ORDERED: FERROUS SULFATE 325MG TABLET PO SCH (09:00)
[2019-11-18] MEDS: METRONIDAZOLE 500MG TABLET PO SCH ×2 (10:35→21:53)
[2019-11-18 10:45] LABS: PLATELET ESTIMATE NORMAL
[2019-11-18] MEDS: PANTOPRAZOLE SODIUM 40 MG/VIAL IV SCH (10:54)
[2019-11-18 12:00] VITALS: BP 98/58
[2019-11-18] MEDS: CEFTRIAXONE 1,000 MG in DEXTROSE 5% WATER 50 ML IV SCH ×2 (12:30→14:26)
[2019-11-18 12:43] LABS: BASOPHILS % 1.1 % (0.0-2.0); EOSINOPHILS % 7.1 % (0.0-5.0); HEMOGLOBIN. 12.1 g/dL (14.0-18.0); LYMPHOCYTES % 12.1 % (20.0-50.0); MEAN CORPUSCULAR HEMOGLOBIN 34.3 pg (28.0-32.0); MEAN CORPUSCULAR VOLUME 102.3 fL (80.0-94.0); MEAN PLATELET VOLUME 6.8 fl (7.4-10.4); MONOCYTES % 11.4 % (2.0-8.0); NEUTROPHILS % 68.3 % (40.0-76.0); PLATELET 243 x1000/uL (130-400); RED BLOOD CELL COUNT 3.52 mill/uL (4.7-6.1); RED CELL DISTRIBUTION WIDTH 16.2 % (11.6-14.6)
[2019-11-18] MEDS: FOLIC ACID/VITAMIN B COMP W-C TABLET PO SCH (13:56)
[2019-11-18 16:00] VITALS: BP 107/45
[2019-11-18 20:00] VITALS: BP 140/62
[2019-11-18 21:20] LABS: HEMATOCRIT. 32.3 % (42.0-52.0); HEMOGLOBIN. 10.8 g/dL (14.0-18.0); MEAN CORPUSCULAR HEMOGLOBIN 34.7 pg (28.0-32.0); MEAN CORPUSCULAR VOLUME 103.7 fL (80.0-94.0); MEAN PLATELET VOLUME 6.9 fl (7.4-10.4); PLATELET 195 x1000/uL (130-400); RED BLOOD CELL COUNT 3.11 mill/uL (4.7-6.1)
[2019-11-18 22:30] LABS: PLATELET ESTIMATE NORMAL
[2019-11-19] VITALS: BP 135/56
[2019-11-19 00:30] LABS: BASOPHILS % 1.5 % (0.0-2.0); HEMATOCRIT. 33.4 % (42.0-52.0); HEMOGLOBIN. 11.1 g/dL (14.0-18.0); LYMPHOCYTES % 12.8 % (20.0-50.0); MEAN CORPUSCULAR HEMOGLOBIN 34.8 pg (28.0-32.0); MEAN CORPUSCULAR VOLUME 104.1 fL (80.0-94.0); MEAN PLATELET VOLUME 6.5 fl (7.4-10.4); MONOCYTES % 14.5 % (2.0-8.0); NEUTROPHILS % 64.2 % (40.0-76.0); PLATELET 200 x1000/uL (130-400); RED BLOOD CELL COUNT 3.21 mill/uL (4.7-6.1); RED CELL DISTRIBUTION WIDTH 16.2 % (11.6-14.6)
[2019-11-19 04:10] VITALS: BP 117/64
[2019-11-19] MEDS: DIPHENHYDRAMINE 50MG/ML VIAL IV PRN ×2 (05:50→14:48)
[2019-11-19 07:17] LABS: PLATELET ESTIMATE NORMAL
[2019-11-19 08:00] VITALS: BP 125/56
[2019-11-19 08:45] LABS: HEMATOCRIT. 35.6 % (42.0-52.0); HEMOGLOBIN. 11.6 g/dL (14.0-18.0); MEAN CORPUSCULAR HEMOGLOBIN 34.3 pg (28.0-32.0); MEAN CORPUSCULAR VOLUME 105.5 fL (80.0-94.0); MEAN PLATELET VOLUME 6.7 fl (7.4-10.4); PLATELET 196 x1000/uL (130-400); RED BLOOD CELL COUNT 3.38 mill/uL (4.7-6.1); RED CELL DISTRIBUTION WIDTH 16.2 % (11.6-14.6)
[2019-11-19 08:49] LABS: CHLORIDE 103 mEq/L (98-107)
[2019-11-19] MEDS: CEFTRIAXONE 1,000 MG in DEXTROSE 5% WATER 50 ML IV SCH (09:10)
[2019-11-19] MEDS: PANTOPRAZOLE SODIUM 40 MG/VIAL IV SCH (09:10)
[2019-11-19] MEDS: METRONIDAZOLE 500MG TABLET PO SCH (09:10)
[2019-11-19] MEDS: FOLIC ACID/VITAMIN B COMP W-C TABLET PO SCH (09:10)
[2019-11-19 12:00] VITALS: BP 130/56
[2019-11-19] MEDS ORDERED: METR500T MT (12:18)
[2019-11-19] MEDS ORDERED: SULF1TAB48 MT (12:18)
[2019-11-19] MEDS ORDERED: DOXY100C42 MT (13:48)
[2019-11-19 13:58] LABS: PLATELET ESTIMATE NORMAL
[2019-11-19 15:24] VITALS: BP 120/54
[2019-11-19 18:13] VITALS: BP 120/54
== END 2019-11-19 18:35 | disposition home or self-care (01) | DRG 377 ==
LOC: ER 08:46 → 8WST 12:06 → ENRESERV 16:46
PROVIDERS: ADMIT Internal Medicine; ATTEND Internal Medicine
PROC: 5A1D70Z Performance of Urinary Filtration, Intermittent, Less than 6 Hours Per Day (ICD-10-PCS; principal; 2019-11-17)
PROC: 5A1D70Z Performance of Urinary Filtration, Intermittent, Less than 6 Hours Per Day (ICD-10-PCS; 2019-11-19)
DX: K57.33 Diverticulitis of large intestine without perforation or abscess with bleeding (principal); N18.6 End stage renal disease; I13.2 Hypertensive heart and chronic kidney disease with heart failure and with stage 5 chronic kidney disease, or end stage renal disease; Q78.2 Osteopetrosis; D62 Acute posthemorrhagic anemia; D63.8 Anemia in other chronic diseases classified elsewhere; Z99.2 Dependence on renal dialysis; K59.09 Other constipation; I50.9 Heart failure, unspecified; E78.5 Hyperlipidemia, unspecified; D63.1 Anemia in chronic kidney disease; I25.10 Atherosclerotic heart disease of native coronary artery without angina pectoris; K76.0 Fatty (change of) liver, not elsewhere classified; D73.89 Other diseases of spleen; N25.0 Renal osteodystrophy; K57.90 Diverticulosis of intestine, part unspecified, without perforation or abscess without bleeding; Z88.1 Allergy status to other antibiotic agents; Z82.49 Family history of ischemic heart disease and other diseases of the circulatory system; Z86.718 Personal history of other venous thrombosis and embolism; Z91.09 Other allergy status, other than to drugs and biological substances; Z79.899 Other long term (current) drug therapy
CPT/HCPCS: 36415; 71045; 74177; 76700; 80053; 82270; 82728; 82962; 83540; 83550; 83735; 85025; 86850; 86900; 93005; 93306; 93970; 99285; C9113; J0696; J1200; J7060; Q9963

== ENCOUNTER 2019-12-15 11:41 | Emergency (ER) | payer MEDICARE, MEDICAID ==
[~2019-12-15] VITALS: Ht 160 cm; Wt 73.0 kg
[~2019-12-15 11:41] MED LIST changes: +DOXY100C42 MT; -FERR325T6 MT; -SULF1TAB48 MT
[2019-12-15] MEDS: SODIUM CHLORIDE 0.9% 1,000 ML IV ONE ×2 (12:34→12:36)
[2019-12-15 12:49] LABS: CHLORIDE 109 mEq/L (98-107); HEMATOCRIT. 36.2 % (42.0-52.0); MEAN CORPUSCULAR HEMOGLOBIN 35.1 pg (28.0-32.0); MEAN CORPUSCULAR VOLUME 106.3 fL (80.0-94.0); MEAN PLATELET VOLUME 8.2 fl (7.4-10.4); PLATELET 317 x1000/uL (130-400); RED BLOOD CELL COUNT 3.41 mill/uL (4.7-6.1); RED CELL DISTRIBUTION WIDTH 16.3 % (11.6-14.6)
[2019-12-15] MEDS ORDERED: DIPHENHYDRAMINE 50MG CAPSULE PO ONE (13:15)
[2019-12-15 13:20] LABS: PLATELET ESTIMATE NORMAL
[2019-12-15] MEDS ORDERED: MORPHINE SULFATE 4 MG/ML CPJ (NOT FOR IM USE) IV ONE (14:00)
[2019-12-15 14:22] LABS: PROTHROMBIN TIME 10.9 sec (9.6-11.0)
[2019-12-15] MEDS ORDERED: IOHEXOL-300 100 ML BOTTLE ONE (15:12)
[2019-12-15 16:11] VITALS: BP 140/66
[2019-12-15] MEDS ORDERED: HYDROCODONE/ACETAMINOPHEN 5/325MG TABLET PO ONE (16:15)
== END 2019-12-15 16:45 | disposition home or self-care (01) ==
LOC: ER 11:41
DX: K57.92 Diverticulitis of intestine, part unspecified, without perforation or abscess without bleeding (principal); Z98.890 Other specified postprocedural states; Z88.0 Allergy status to penicillin; Z79.899 Other long term (current) drug therapy
CPT/HCPCS: 36415; 74177; 80053; 83605; 83690; 84484; 85025; 85610; 93005; 96374; 99285; J2270; J7030; Q9967; Q0163

== ENCOUNTER 2020-03-22 10:43 | Emergency (ER) | payer MEDICARE, MEDICAID ==
[~2020-03-22] VITALS: Ht 157.5 cm; Wt 72.0 kg
[2020-03-22 15:32] LABS: BASOPHILS % 1.3 % (0.0-2.0); CHLORIDE 107 mEq/L (98-107); EOSINOPHILS % 5.1 % (0.0-5.0); HEMATOCRIT. 38.6 % (42.0-52.0); HEMOGLOBIN. 12.3 g/dL (14.0-18.0); LYMPHOCYTES % 13.2 % (20.0-50.0); MEAN CORPUSCULAR HEMOGLOBIN 33.2 pg (28.0-32.0); MEAN CORPUSCULAR VOLUME 103.9 fL (80.0-94.0); MEAN PLATELET VOLUME 7.4 fl (7.4-10.4); MONOCYTES % 14.9 % (2.0-8.0); NEUTROPHILS % 65.5 % (40.0-76.0); PLATELET 268 x1000/uL (130-400); RED BLOOD CELL COUNT 3.71 mill/uL (4.7-6.1); RED CELL DISTRIBUTION WIDTH 14.9 % (11.6-14.6)
[2020-03-22] MEDS ORDERED: HYDROCODONE/ACETAMINOPHEN 5/325MG TABLET PO ONE (16:15)
[2020-03-22 17:15] VITALS: BP 130/60
== END 2020-03-22 17:18 | disposition home or self-care (01) ==
LOC: ER 10:53
DX: K57.92 Diverticulitis of intestine, part unspecified, without perforation or abscess without bleeding (principal); I12.0 Hypertensive chronic kidney disease with stage 5 chronic kidney disease or end stage renal disease; E11.22 Type 2 diabetes mellitus with diabetic chronic kidney disease; N18.6 End stage renal disease; Z99.2 Dependence on renal dialysis; Z88.0 Allergy status to penicillin; Z88.8 Allergy status to other drugs, medicaments and biological substances; Z98.890 Other specified postprocedural states
CPT/HCPCS: 36415; 74176; 80053; 85025; 99285

== ENCOUNTER 2020-07-11 11:31 | Inpatient (IN) | payer MEDICARE, MEDICAID ==
[~2020-07-11] VITALS: Ht 160 cm; Wt 61.7 kg
[2020-07-11] MEDS ORDERED: MORPHINE SULFATE 4 MG/ML CPJ (NOT FOR IM USE) IV STA (12:11)
[2020-07-11] MEDS ORDERED: ONDANSETRON HCL 4MG/2ML INJ IV STA (12:11)
[2020-07-11 13:01] LABS: HEMATOCRIT. 36.1 % (42.0-52.0); HEMOGLOBIN. 11.8 g/dL (14.0-18.0); MEAN CORPUSCULAR HEMOGLOBIN 33.5 pg (28.0-32.0); MEAN CORPUSCULAR VOLUME 101.8 fL (80.0-94.0); PLATELET 253 x1000/uL (130-400); RED BLOOD CELL COUNT 3.54 mill/uL (4.7-6.1); RED CELL DISTRIBUTION WIDTH 14.3 % (11.6-14.6)
[2020-07-11 13:11] LABS: CHLORIDE 106 mEq/L (98-107)
[2020-07-11 13:36] LABS: INR 1.1; PROTHROMBIN TIME 11.4 sec (9.6-11.0)
[2020-07-11 13:51] LABS: PLATELET ESTIMATE NORMAL
[2020-07-11] MEDS ORDERED: CEFTRIAXONE 1 G PREMIX 50 ML IV ONE (15:00)
[2020-07-11] MEDS ORDERED: METRONIDAZOLE 500 MG PREMIX 100 ML IV ONE ×2 (15:00→20:00)
[2020-07-11] MEDS ORDERED: MORPHINE SULFATE 4 MG/ML CPJ (NOT FOR IM USE) IV ONE (15:30)
[2020-07-11] MEDS ORDERED: IPRATROPIUM/ALBUTEROL 0.5-3(2.5)MG/3ML NEB HHN PRN (16:30)
[2020-07-11] MEDS ORDERED: ONDANSETRON HCL 4MG/2ML INJ IV PRN (16:30)
[2020-07-11] MEDS ORDERED: CLONIDINE 0.1MG TABLET PO PRN (16:30)
[2020-07-11] MEDS ORDERED: DOCUSATE SODIUM 100MG CAPSULE PO PRN (16:30)
[2020-07-11] MEDS ORDERED: ACETAMINOPHEN 325MG TABLET PO PRN ×2 (16:30)
[2020-07-11] MEDS ORDERED: HYDROCODONE/ACETAMINOPHEN 5/325MG TABLET PO PRN (16:30)
[2020-07-11] MEDS: MORPHINE SULFATE 2 MG/ML CPJ (NOT FOR IM USE) IV PRN (20:33)
[2020-07-11] MEDS: LORAZEPAM 0.5MG TABLET PO PRN (20:33)
[2020-07-11 20:36] LABS: TOTAL IRON BINDING CAPACITY 221 ug/dL (250-450)
[2020-07-11 20:57] LABS: VITAMIN B12 SERUM 721 pg/mL (211-911)
[2020-07-11] MEDS ORDERED: MESALAMINE 1000MG SUPPOSITORY PR SCH (21:00)
[2020-07-11 21:06] LABS: FOLIC ACID (FOLATE) SERUM >20 ng/mL ng/mL (>5.38)
[2020-07-11 21:26] LABS: FERRITIN 1806 ng/mL (22-322)
[2020-07-11] MEDS: HYDROCORTISONE ACETATE 25MG SUPP PR SCH (21:51)
[2020-07-11] MEDS ORDERED: METRONIDAZOLE 500 MG PREMIX 100 ML IV SCH (23:30)
[2020-07-12] MEDS ORDERED: CLOP-31 MT (01:52)
[2020-07-12] MEDS ORDERED: ASPI-1497 MT (01:52)
[2020-07-12] MEDS ORDERED: LACT10SO30 PO (01:52)
[2020-07-12] MEDS ORDERED: FERR210T MT (01:52)
[2020-07-12 01:59] VITALS: BP 126/63
[2020-07-12] MEDS ORDERED: DIPHENHYDRAMINE 25MG CAPSULE PO PRN (02:00)
[2020-07-12 04:00] VITALS: BP 117/62
[2020-07-12 06:48] LABS: HEMATOCRIT. 36.9 % (42.0-52.0); HEMOGLOBIN. 11.8 g/dL (14.0-18.0); MEAN CORPUSCULAR HEMOGLOBIN 33.2 pg (28.0-32.0); MEAN CORPUSCULAR VOLUME 103.7 fL (80.0-94.0); MEAN PLATELET VOLUME 7.1 fl (7.4-10.4); PLATELET 226 x1000/uL (130-400); RED BLOOD CELL COUNT 3.56 mill/uL (4.7-6.1); RED CELL DISTRIBUTION WIDTH 14.9 % (11.6-14.6)
[2020-07-12 08:00] VITALS: BP 116/55
[2020-07-12] MEDS: METRONIDAZOLE 500 MG PREMIX 100 ML IV SCH ×3 (09:05→23:10)
[2020-07-12] MEDS: HYDROCORTISONE ACETATE 25MG SUPP PR SCH (09:05)
[2020-07-12] MEDS: MORPHINE SULFATE 2 MG/ML CPJ (NOT FOR IM USE) IV PRN ×2 (09:29→20:50)
[2020-07-12] MEDS: DIPHENHYDRAMINE 50MG/ML VIAL IV PRN ×2 (10:49→23:14)
[2020-07-12 12:00] VITALS: BP 98/55
[2020-07-12] MEDS ORDERED: BISACODYL 10MG SUPP PR PRN (12:45)
[2020-07-12] MEDS: BISACODYL 5MG TABLET PO SCH (13:56)
[2020-07-12] MEDS: POLYETHYLENE GLYCOL 3350 (17GM) 1 DOSE PACK PO SCH (13:56)
[2020-07-12] MEDS: SORBITOL 70% SOLN 30ML PO SCH (13:57)
[2020-07-12] MEDS: CEFTRIAXONE 1,000 MG in DEXTROSE 5% WATER 50 ML IV SCH (15:06)
[2020-07-12 15:22] LABS: PLATELET ESTIMATE NORMAL
[2020-07-12] MEDS ORDERED: CEFTRIAXONE 1 G PREMIX 50 ML IV SCH (15:30)
[2020-07-12 16:00] VITALS: BP 112/52
[2020-07-12] MEDS: FOLIC ACID/VITAMIN B COMP W-C TABLET PO SCH (17:23)
[2020-07-12] MEDS: ASPIRIN 81MG EC TABLET PO SCH (17:24)
[2020-07-12] MEDS: CLOPIDOGREL 75MG TABLET PO SCH (17:25)
[2020-07-12 20:00] VITALS: BP 107/58
[2020-07-13] VITALS: BP 164/86
[2020-07-13 04:00] VITALS: BP 98/51
[2020-07-13] MEDS: METRONIDAZOLE 500 MG PREMIX 100 ML IV SCH (06:05)
[2020-07-13] MEDS: DIPHENHYDRAMINE 50MG/ML VIAL IV PRN ×3 (06:09→20:41)
[2020-07-13 08:00] VITALS: BP 105/57
[2020-07-13] MEDS: POLYETHYLENE GLYCOL 3350 (17GM) 1 DOSE PACK PO SCH (09:22)
[2020-07-13] MEDS: BISACODYL 5MG TABLET PO SCH (09:22)
[2020-07-13] MEDS: CLOPIDOGREL 75MG TABLET PO SCH (09:22)
[2020-07-13] MEDS: FOLIC ACID/VITAMIN B COMP W-C TABLET PO SCH (09:22)
[2020-07-13] MEDS: ASPIRIN 81MG EC TABLET PO SCH (09:22)
[2020-07-13] MEDS: SORBITOL 70% SOLN 30ML PO SCH (09:27)
[2020-07-13 10:18] LABS: PHOSPHORUS 4.6 mg/dL (2.5-4.9)
[2020-07-13] MEDS ORDERED: BISA5TAB10 PO (11:38)
[2020-07-13 12:00] VITALS: BP 114/53
[2020-07-13] MEDS ORDERED: LEVO750T46 MT (14:36)
[2020-07-13] MEDS ORDERED: METR500T MT (14:36)
[2020-07-13 16:00] VITALS: BP 109/58
[2020-07-13] MEDS: CEFTRIAXONE 1,000 MG in DEXTROSE 5% WATER 50 ML IV SCH (16:24)
[2020-07-13] MEDS ORDERED: METRONIDAZOLE 500 MG PREMIX 100 ML IV SCH (19:00)
[2020-07-13 20:00] VITALS: BP 98/54
[2020-07-14] VITALS: BP 86/43
[2020-07-14 04:00] VITALS: BP 102/52
[2020-07-14 08:00] VITALS: BP 97/50
[2020-07-14] MEDS: BISACODYL 5MG TABLET PO SCH (09:00)
[2020-07-14] MEDS: POLYETHYLENE GLYCOL 3350 (17GM) 1 DOSE PACK PO SCH (09:00)
[2020-07-14] MEDS: CLOPIDOGREL 75MG TABLET PO SCH (09:35)
[2020-07-14] MEDS: ASPIRIN 81MG EC TABLET PO SCH (09:36)
[2020-07-14] MEDS: FOLIC ACID/VITAMIN B COMP W-C TABLET PO SCH (09:36)
[2020-07-14] MEDS: SORBITOL 70% SOLN 30ML PO SCH (09:39)
[2020-07-14 12:00] VITALS: BP 93/51
[2020-07-14] MEDS ORDERED: LEVOFLOXACIN 750MG PREMIX 150 ML IV NR (12:00)
[2020-07-14 16:00] VITALS: BP 97/50
[2020-07-14] MEDS: LORAZEPAM 0.5MG TABLET PO PRN (17:11)
[2020-07-14 20:00] VITALS: BP 102/50
[2020-07-14] MEDS: METRONIDAZOLE 500MG TABLET PO SCH ×2 (21:00→22:41)
[2020-07-15] VITALS: BP 97/48
[2020-07-15 04:00] VITALS: BP 109/50
[2020-07-15 06:38] LABS: PHOSPHORUS 3.5 mg/dL (2.5-4.9)
[2020-07-15 07:05] LABS: HEMATOCRIT. 38.8 % (42.0-52.0); HEMOGLOBIN. 11.8 g/dL (14.0-18.0); MEAN CORPUSCULAR HEMOGLOBIN 32.8 pg (28.0-32.0); MEAN PLATELET VOLUME 7.8 fl (7.4-10.4); PLATELET 229 x1000/uL (130-400)
[2020-07-15 08:00] VITALS: BP 113/53
[2020-07-15] MEDS: LORAZEPAM 0.5MG TABLET PO PRN (09:10)
[2020-07-15] MEDS: ASPIRIN 81MG EC TABLET PO SCH (09:10)
[2020-07-15] MEDS: METRONIDAZOLE 500MG TABLET PO SCH (09:10)
[2020-07-15] MEDS: CLOPIDOGREL 75MG TABLET PO SCH (09:10)
[2020-07-15] MEDS: SORBITOL 70% SOLN 30ML PO SCH (09:10)
[2020-07-15] MEDS: FOLIC ACID/VITAMIN B COMP W-C TABLET PO SCH (09:10)
[2020-07-15 12:00] VITALS: BP 113/57
[2020-07-15 16:00] VITALS: BP 95/53
[2020-07-15 16:28] VITALS: BP 95/53
[2020-07-15 18:35] LABS: PLATELET ESTIMATE NORMAL
== END 2020-07-15 17:36 | disposition home or self-care (01) | DRG 391 ==
LOC: ER 11:31 → 6EST 16:02 → ENRESERV 18:50 → CANRESERV 18:50 → EDBEDREQSVC 19:24 → EDBEDREQTM 19:24 → ENRESERV 23:45
PROVIDERS: ADMIT Internal Medicine; ATTEND Internal Medicine
PROC: 5A1D70Z Performance of Urinary Filtration, Intermittent, Less than 6 Hours Per Day (ICD-10-PCS; principal; 2020-07-13)
PROC: 5A1D70Z Performance of Urinary Filtration, Intermittent, Less than 6 Hours Per Day (ICD-10-PCS; 2020-07-15)
DX: K57.32 Diverticulitis of large intestine without perforation or abscess without bleeding (principal); N18.6 End stage renal disease; K62.6 Ulcer of anus and rectum; K50.911 Crohn's disease, unspecified, with rectal bleeding; J98.11 Atelectasis; I13.2 Hypertensive heart and chronic kidney disease with heart failure and with stage 5 chronic kidney disease, or end stage renal disease; K59.00 Constipation, unspecified; D50.0 Iron deficiency anemia secondary to blood loss (chronic); D53.9 Nutritional anemia, unspecified; D72.821 Monocytosis (symptomatic); D63.1 Anemia in chronic kidney disease; I50.9 Heart failure, unspecified; Z20.822 Contact with and (suspected) exposure to COVID-19; K80.20 Calculus of gallbladder without cholecystitis without obstruction; I95.9 Hypotension, unspecified; D63.8 Anemia in other chronic diseases classified elsewhere; Z99.2 Dependence on renal dialysis; Z82.49 Family history of ischemic heart disease and other diseases of the circulatory system; Z88.1 Allergy status to other antibiotic agents; Z79.899 Other long term (current) drug therapy; D72.810 Lymphocytopenia; Z79.02 Long term (current) use of antithrombotics/antiplatelets; K57.30 Diverticulosis of large intestine without perforation or abscess without bleeding
CPT/HCPCS: 36415; 71045; 74176; 80048; 80053; 80069; 82607; 82728; 82746; 82962; 83540; 83550; 84100; 84145; 84484; 85025; 87426; 93005; 97162; 99285; C1893; J0696; J1200; J1956; J2270; J2405; J3490; J7040; J7060; Q0163

== ENCOUNTER 2020-10-01 05:54 | Inpatient (IN) | payer MEDICARE, MEDICAID ==
[~2020-10-01] VITALS: Ht 170.2 cm; Wt 92.1 kg
[2020-10-01] VITALS (18 sets, daily range): BP systolic 88–116; BP diastolic 42–68
[~2020-10-01 05:54] MED LIST changes: +ASPI-1497 MT; +BISA5TAB10 PO; +CLOP75TA4 MT; -DOXY100C42 MT; +LACT10SO30 PO; +LEVO750T46 MT
[2020-10-01] MEDS ORDERED: ERYT-109 PO (06:29)
[2020-10-01] MEDS ORDERED: HYDR50SY PO (06:29)
[2020-10-01] MEDS ORDERED: FERR210T PO (06:29)
[2020-10-01] MEDS ORDERED: OMEP40CA12 PO (06:29)
[2020-10-01] MEDS ORDERED: MIDO2.5T PO (06:29)
[2020-10-01] MEDS ORDERED: LACTATED RINGERS 1,000 ML IV SCH (06:30)
[2020-10-01] MEDS ORDERED: SODIUM CHLORIDE 0.9% 500 ML IV NR (07:00)
[2020-10-01] MEDS ORDERED: BUPIVACAINE HCL 0.5% (5MG/ML) 50ML ONE (07:05)
[2020-10-01] MEDS ORDERED: BACITRACIN 50,000 UNITS/VIAL ONE (07:07)
[2020-10-01] MEDS ORDERED: MORPHINE SULFATE 4 MG/ML CPJ (NOT FOR IM USE) IV PRN (08:00)
[2020-10-01] MEDS ORDERED: ONDANSETRON HCL 4MG/2ML INJ IV PRN ×3 (08:00→11:45)
[2020-10-01] MEDS ORDERED: MORPHINE SULFATE 2 MG/ML CPJ (NOT FOR IM USE) IV PRN ×2 (08:00→09:30)
[2020-10-01] MEDS ORDERED: DEXT 5%/0.45% NACL KCL 20MEQ/L 1,000 ML IV SCH (08:00)
[2020-10-01] MEDS ORDERED: CLINDAMYCIN 900 MG PREMIX 50 ML IV ONE (08:18)
[2020-10-01] MEDS ORDERED: FAMOTIDINE 20MG/2ML VIAL IV SCH (09:00)
[2020-10-01] MEDS ORDERED: HYDROMORPHONE HCL/PF 2MG/ML CPJ IV PRN (09:30)
[2020-10-01] MEDS ORDERED: MEPERIDINE HCL/PF 25MG/ML CPJ IV PRN (09:30)
[2020-10-01] MEDS ORDERED: SODIUM CHLORIDE 0.9% 1,000 ML IV ONE (09:30)
[2020-10-01] MEDS ORDERED: PHENYLEPHRINE 100 MG in DEXT 5% WATER 240 ML IV PRN (09:45)
[2020-10-01 09:59] LABS: BG BASE EXCESS -3.6 mmol/L (-2.0-2.0); BG CARBOXYHEMOGLOBIN 0.1 % (0.5-1.5); BG DEOXYHEMOGLOBIN 0.3 % (0.0-5.0); BG HCO3 ACT 19.7 mmol/L (22.0-26.0); BG METHEMOGLOBIN 0.3 % (0.0-1.5); BG OXYGEN SATURATION 99.7 % (92.0-98.5); BG OXYHEMOGLOBIN 99.3 % (94.0-97.0); BG PCO2 30.5 mmHg (35.0-45.0); BG PH 7.428 (7.350-7.450); BG SAMPLE SITE RIGHT FEMORAL; BG TOTAL HEMOGLOBIN 12.7 g/dL (12.0-18.0); BG VENT MODE VENT - AC
[2020-10-01 10:07] LABS: HEMATOCRIT 40.5 % (42.0-52.0); HEMOGLOBIN 13.4 g/dL (14.0-18.0); MEAN CORPUSCULAR HEMOGLOBIN 32.1 pg (28.0-32.0); MEAN CORPUSCULAR VOLUME 97.1 fL (80.0-94.0); PLATELET 233 x1000/uL (130-400); RED BLOOD CELL COUNT 4.17 mill/uL (4.7-6.1); RED CELL DISTRIBUTION WIDTH 16.3 % (11.6-14.6)
[2020-10-01] MEDS: NOREPINEPHRINE 8 MG in DEXTROSE 5% WATER 250 ML IV PRN ×2 (10:33→22:50)
[2020-10-01] MEDS: PHENYLEPHRINE 100 MG in DEXT 5% WATER 240 ML IV PRN ×2 (11:11→21:40)
[2020-10-01] MEDS ORDERED: CLONIDINE 0.1MG TABLET PO PRN (11:45)
[2020-10-01] MEDS ORDERED: GUAIFENESIN 200MG/10ML SUGAR FREE UDC PO PRN (11:45)
[2020-10-01] MEDS ORDERED: IPRATROPIUM/ALBUTEROL 0.5-3(2.5)MG/3ML NEB NEB PRN (11:45)
[2020-10-01] MEDS ORDERED: MAGNESIUM/ALUMINUM HYDROXIDE/SIMETHICONE 30ML UDC PO PRN (11:45)
[2020-10-01] MEDS ORDERED: ACETAMINOPHEN 325MG TABLET PO PRN (11:45)
[2020-10-01] MEDS ORDERED: IPRATROPIUM/ALBUTEROL 0.5-3(2.5)MG/3ML NEB HHN SCH (11:45)
[2020-10-01 11:53] LABS: INR 1.1; PARTIAL THROMBOPLASTIN TIME 29.8 sec (23.4-31.0); PROTHROMBIN TIME 11.6 sec (9.6-11.0)
[2020-10-01] MEDS ORDERED: HEPARIN 100 UNITS/1 ML VIAL IVF PRN (12:45)
[2020-10-01] MEDS ORDERED: CEFAZOLIN 1000MG PREMIX 50 ML IV NR ×2 (13:15)
[2020-10-01] MEDS: METRONIDAZOLE 500 MG PREMIX 100 ML IV SCH (13:28)
[2020-10-01 14:33] LABS: HEMATOCRIT. 40.2 % (42.0-52.0); HEMOGLOBIN. 13.3 g/dL (14.0-18.0); MEAN CORPUSCULAR HEMOGLOBIN 32.1 pg (28.0-32.0); MEAN PLATELET VOLUME 7.1 fl (7.4-10.4); PLATELET 266 x1000/uL (130-400); RED BLOOD CELL COUNT 4.14 mill/uL (4.7-6.1); RED CELL DISTRIBUTION WIDTH 16.4 % (11.6-14.6)
[2020-10-01] MEDS ORDERED: FENTANYL CITRATE/PF 1,000 MCG in SODIUM CHLORIDE 0.9% 80 ML IV PRN (15:00)
[2020-10-01] MEDS ORDERED: MIDAZOLAM 100MG/100ML PMX 100 ML IV PRN (15:00)
[2020-10-01] MEDS ORDERED: MIDAZOLAM HCL 100 MG in SODIUM CHLORIDE 0.9% 80 ML IV PRN (15:30)
[2020-10-01 15:32] LABS: PLATELET ESTIMATE NORMAL
[2020-10-01] MEDS: FENTANYL CITRATE/PF 2,500 MCG in SODIUM CHLORIDE 0.9% 200 ML IV PRN (17:25)
[2020-10-01 19:49] LABS: HEMOGLOBIN 12.6 g/dL (14.0-18.0)
[2020-10-01] MEDS: AZTREONAM 1 G in DEXTROSE 5% WATER 50 ML IV SCH (20:55)
[2020-10-01] MEDS: DEXT 5%/0.45% NACL 1000ML 1,000 ML IV SCH (22:54)
[2020-10-02] VITALS (96 sets, daily range): BP systolic 50–139; BP diastolic 28–74
[2020-10-02 01:05] LABS: HEMATOCRIT 36.3 % (42.0-52.0); HEMOGLOBIN 11.8 g/dL (14.0-18.0)
[2020-10-02] MEDS: NOREPINEPHRINE 8 MG in DEXT 5% WATER 242 ML IV PRN ×4 (03:46→18:56)
[2020-10-02 05:59] LABS: HEMATOCRIT. 34.4 % (42.0-52.0); HEMOGLOBIN. 11.4 g/dL (14.0-18.0); MEAN CORPUSCULAR HEMOGLOBIN 31.9 pg (28.0-32.0); MEAN CORPUSCULAR VOLUME 96.4 fL (80.0-94.0); MEAN PLATELET VOLUME 7.4 fl (7.4-10.4); PLATELET 234 x1000/uL (130-400); RED BLOOD CELL COUNT 3.57 mill/uL (4.7-6.1); RED CELL DISTRIBUTION WIDTH 16.4 % (11.6-14.6)
[2020-10-02] MEDS: METRONIDAZOLE 500 MG PREMIX 100 ML IV SCH (05:59)
[2020-10-02 06:03] LABS: CHLORIDE 105 mEq/L (98-107)
[2020-10-02] MEDS: PHENYLEPHRINE 100 MG in DEXT 5% WATER 240 ML IV PRN ×2 (06:09→15:42)
[2020-10-02 06:11] LABS: PHOSPHORUS 3.2 mg/dL (2.5-4.9)
[2020-10-02] MEDS: PANTOPRAZOLE SODIUM 40 MG/VIAL IV SCH (08:44)
[2020-10-02 08:45] LABS: BG BASE EXCESS -8.7 mmol/L (-2.0-2.0); BG CARBOXYHEMOGLOBIN 0.3 % (0.5-1.5); BG DEOXYHEMOGLOBIN 1.1 % (0.0-5.0); BG FRACTION INSPIRED OXYGEN 40; BG HCO3 ACT 15.8 mmol/L (22.0-26.0); BG OXYGEN SATURATION 98.9 % (92.0-98.5); BG OXYHEMOGLOBIN 98.6 % (94.0-97.0); BG PCO2 29.9 mmHg (35.0-45.0); BG PO2 163.6 mmHg (75.0-100.0); BG SAMPLE SITE RIGHT BRACHIAL; BG TOTAL HEMOGLOBIN 12.2 g/dL (12.0-18.0); BG VENT MODE VENT - AC
[2020-10-02] MEDS: DEXT 5%/0.45% NACL 1000ML 1,000 ML IV SCH (08:45)
[2020-10-02] MEDS ORDERED: NALOXONE HCL 0.4MG/ML VIAL IV PRN (08:45)
[2020-10-02 09:44] LABS: HEMOGLOBIN 11.6 g/dL (14.0-18.0)
[2020-10-02] MEDS: AZTREONAM 1 G in DEXTROSE 5% WATER 50 ML IV SCH ×2 (09:49→20:05)
[2020-10-02 10:41] LABS: PLATELET ESTIMATE NORMAL
[2020-10-02] MEDS: IPRATROPIUM/ALBUTEROL 0.5-3(2.5)MG/3ML NEB HHN SCH ×2 (15:16→20:31)
[2020-10-02] MEDS: FENTANYL CITRATE/PF 2,500 MCG in SODIUM CHLORIDE 0.9% 200 ML IV PRN (17:40)
[2020-10-03] VITALS (96 sets, daily range): BP systolic 64–141; BP diastolic 28–75
[2020-10-03] MEDS: NOREPINEPHRINE 8 MG in DEXT 5% WATER 242 ML IV PRN ×5 (00:02→20:59)
[2020-10-03] MEDS: PHENYLEPHRINE 100 MG in DEXT 5% WATER 240 ML IV PRN ×3 (00:03→18:44)
[2020-10-03] MEDS: IPRATROPIUM/ALBUTEROL 0.5-3(2.5)MG/3ML NEB HHN SCH ×4 (00:09→20:43)
[2020-10-03 02:48] LABS: HEPATITIS B SURFACE ANTIGEN NEGATIVE
[2020-10-03 03:16] LABS: HEPATITIS A AB IGM NEGATIVE (NEGATIVE)
[2020-10-03] MEDS: DEXT 5%/0.45% NACL 1000ML 1,000 ML IV SCH (03:32)
[2020-10-03 06:06] LABS: HEMATOCRIT. 32.1 % (42.0-52.0); HEMOGLOBIN. 10.5 g/dL (14.0-18.0); MEAN CORPUSCULAR HEMOGLOBIN 31.7 pg (28.0-32.0); MEAN CORPUSCULAR VOLUME 97.3 fL (80.0-94.0); MEAN PLATELET VOLUME 7.9 fl (7.4-10.4); PLATELET 192 x1000/uL (130-400); RED CELL DISTRIBUTION WIDTH 15.6 % (11.6-14.6)
[2020-10-03 09:10] LABS: NUCLEATED RED BLOOD CELLS 1 /100 WBC; PLATELET ESTIMATE NORMAL
[2020-10-03] MEDS: VASOPRESSIN 20 UNIT in SODIUM CHLORIDE 0.9% 99 ML IV PRN ×2 (10:12→17:50)
[2020-10-03] MEDS: PANTOPRAZOLE SODIUM 40 MG/VIAL IV SCH (10:18)
[2020-10-03] MEDS: AZTREONAM 1 G in DEXTROSE 5% WATER 50 ML IV SCH ×2 (10:18→21:43)
[2020-10-03 12:31] LABS: BG BASE EXCESS -3.4 mmol/L (-2.0-2.0); BG CARBOXYHEMOGLOBIN 0.3 % (0.5-1.5); BG DEOXYHEMOGLOBIN 1.4 % (0.0-5.0); BG FRACTION INSPIRED OXYGEN 40; BG HCO3 ACT 20.9 mmol/L (22.0-26.0); BG METHEMOGLOBIN 0.3 % (0.0-1.5); BG OXYGEN SATURATION 98.6 % (92.0-98.5); BG PCO2 35.2 mmHg (35.0-45.0); BG PH 7.392 (7.350-7.450); BG PO2 124.3 mmHg (75.0-100.0); BG SAMPLE SITE RIGHT BRACHIAL; BG TOTAL HEMOGLOBIN 10.9 g/dL (12.0-18.0); BG TOTAL RESPIRATORY RATE 16 b/min; BG VENT MODE VENT - AC
[2020-10-03] MEDS: FENTANYL CITRATE/PF 2,500 MCG in SODIUM CHLORIDE 0.9% 200 ML IV PRN (15:41)
[2020-10-04] VITALS (104 sets, daily range): BP systolic 67–153; BP diastolic 35–90
[2020-10-04] MEDS: IPRATROPIUM/ALBUTEROL 0.5-3(2.5)MG/3ML NEB HHN SCH ×4 (01:11→20:21)
[2020-10-04] MEDS: VASOPRESSIN 20 UNIT in SODIUM CHLORIDE 0.9% 99 ML IV PRN ×3 (01:32→18:38)
[2020-10-04] MEDS: PHENYLEPHRINE 100 MG in DEXT 5% WATER 240 ML IV PRN ×3 (03:33→19:03)
[2020-10-04 05:40] LABS: HEMATOCRIT. 27.9 % (42.0-52.0); HEMOGLOBIN. 9.3 g/dL (14.0-18.0); MEAN CORPUSCULAR HEMOGLOBIN 31.9 pg (28.0-32.0); MEAN CORPUSCULAR VOLUME 95.3 fL (80.0-94.0); MEAN PLATELET VOLUME 7.7 fl (7.4-10.4); PLATELET 194 x1000/uL (130-400); RED BLOOD CELL COUNT 2.93 mill/uL (4.7-6.1); RED CELL DISTRIBUTION WIDTH 15.1 % (11.6-14.6)
[2020-10-04 05:47] LABS: CHLORIDE 98 mEq/L (98-107)
[2020-10-04 07:45] LABS: BG BASE EXCESS -3.7 mmol/L (-2.0-2.0); BG CARBOXYHEMOGLOBIN 0.3 % (0.5-1.5); BG DEOXYHEMOGLOBIN 1.1 % (0.0-5.0); BG HCO3 ACT 20.3 mmol/L (22.0-26.0); BG METHEMOGLOBIN 0.2 % (0.0-1.5); BG OXYGEN SATURATION 98.9 % (92.0-98.5); BG OXYHEMOGLOBIN 98.4 % (94.0-97.0); BG PH 7.407 (7.350-7.450); BG PO2 126.8 mmHg (75.0-100.0); BG SAMPLE SITE RIGHT RADIAL; BG TOTAL HEMOGLOBIN 10.3 g/dL (12.0-18.0); BG VENT MODE VENT - AC
[2020-10-04] MEDS ORDERED: LIDOCAINE HCL/PF 1% 2ML VIAL ONE (09:00)
[2020-10-04] MEDS: PANTOPRAZOLE SODIUM 40 MG/VIAL IV SCH (09:22)
[2020-10-04] MEDS: AZTREONAM 1 G in DEXTROSE 5% WATER 50 ML IV SCH ×2 (09:23→20:05)
[2020-10-04 10:27] LABS: PLATELET ESTIMATE NORMAL
[2020-10-04] MEDS: FENTANYL CITRATE/PF 2,500 MCG in SODIUM CHLORIDE 0.9% 200 ML IV PRN (10:38)
[2020-10-04] MEDS ORDERED: DIPHENHYDRAMINE 50MG/ML VIAL IM PRN (14:15)
[2020-10-04] MEDS: DEXT 5%/0.45% NACL 1000ML 1,000 ML IV SCH (14:37)
[2020-10-04] MEDS: NOREPINEPHRINE 8 MG in DEXT 5% WATER 242 ML IV PRN (14:38)
[2020-10-04] MEDS ORDERED: VANCOMYCIN 1250MG in DEXTROSE 5% WATER 250ML IV SCH (20:00)
[2020-10-05] VITALS (101 sets, daily range): BP systolic 73–145; BP diastolic 27–76
[2020-10-05] MEDS: DEXT 5%/0.45% NACL 1000ML 1,000 ML IV SCH
[2020-10-05] MEDS: NOREPINEPHRINE 8 MG in DEXT 5% WATER 242 ML IV PRN ×3 (00:17→14:30)
[2020-10-05] MEDS: IPRATROPIUM/ALBUTEROL 0.5-3(2.5)MG/3ML NEB HHN SCH ×4 (01:22→20:36)
[2020-10-05] MEDS: PHENYLEPHRINE 100 MG in DEXT 5% WATER 240 ML IV PRN ×3 (02:46→18:14)
[2020-10-05] MEDS: VASOPRESSIN 20 UNIT in SODIUM CHLORIDE 0.9% 99 ML IV PRN ×3 (05:52→23:58)
[2020-10-05] MEDS: FENTANYL CITRATE/PF 2,500 MCG in SODIUM CHLORIDE 0.9% 200 ML IV PRN ×2 (05:54→23:59)
[2020-10-05 06:20] LABS: HEMATOCRIT 25.3 % (42.0-52.0); HEMOGLOBIN 8.7 g/dL (14.0-18.0); MEAN CORPUSCULAR HEMOGLOBIN 32.5 pg (28.0-32.0); MEAN CORPUSCULAR VOLUME 94.9 fL (80.0-94.0); PLATELET 237 x1000/uL (130-400); RED BLOOD CELL COUNT 2.66 mill/uL (4.7-6.1); RED CELL DISTRIBUTION WIDTH 14.4 % (11.6-14.6)
[2020-10-05 08:48] LABS: BG BASE EXCESS -6.9 mmol/L (-2.0-2.0); BG CARBOXYHEMOGLOBIN 0.3 % (0.5-1.5); BG DEOXYHEMOGLOBIN 2.8 % (0.0-5.0); BG FRACTION INSPIRED OXYGEN 30; BG HCO3 ACT 17.5 mmol/L (22.0-26.0); BG METHEMOGLOBIN 0.1 % (0.0-1.5); BG OXYGEN SATURATION 97.2 % (92.0-98.5); BG OXYHEMOGLOBIN 96.8 % (94.0-97.0); BG PH 7.369 (7.350-7.450); BG PO2 93.9 mmHg (75.0-100.0); BG SAMPLE SITE RIGHT BRACHIAL; BG TOTAL HEMOGLOBIN 10.2 g/dL (12.0-18.0); BG VENT MODE VENT - AC
[2020-10-05] MEDS: PANTOPRAZOLE SODIUM 40 MG/VIAL IV SCH (09:50)
[2020-10-05] MEDS: AZTREONAM 1 G in DEXTROSE 5% WATER 50 ML IV SCH ×2 (09:50→21:10)
[2020-10-05] MEDS: SODIUM CHLORIDE 0.9% 1,000 ML IV SCH (11:37)
[2020-10-05 13:16] LABS: HEMATOCRIT. 28.4 % (42.0-52.0); HEMOGLOBIN. 9.8 g/dL (14.0-18.0); MEAN CORPUSCULAR HEMOGLOBIN 32.7 pg (28.0-32.0); MEAN CORPUSCULAR VOLUME 94.5 fL (80.0-94.0); MEAN PLATELET VOLUME 7.5 fl (7.4-10.4); PLATELET 246 x1000/uL (130-400); RED CELL DISTRIBUTION WIDTH 14.3 % (11.6-14.6)
[2020-10-05 18:57] LABS: PLATELET ESTIMATE NORMAL
[2020-10-05] MEDS: EPOETIN ALFA-EPBX 4,000 UNIT/ML VIAL SUBCUT SCH (21:10)
[2020-10-05] MEDS ORDERED: DEXTROSE 10% WATER 500ML IV SCH (21:15)
[2020-10-05] MEDS ORDERED: DEXT 10% WATER 1,000 ML IV SCH (21:45)
[2020-10-05] MEDS: DIPHENHYDRAMINE 50MG/ML VIAL IV PRN (22:31)
[2020-10-06] VITALS (95 sets, daily range): BP systolic 66–127; BP diastolic 41–70
[2020-10-06] MEDS: PHENYLEPHRINE 100 MG in DEXT 5% WATER 240 ML IV PRN ×3 (01:55→18:59)
[2020-10-06] MEDS: IPRATROPIUM/ALBUTEROL 0.5-3(2.5)MG/3ML NEB HHN SCH ×4 (04:16→20:26)
[2020-10-06] MEDS: DIPHENHYDRAMINE 50MG/ML VIAL IV PRN ×2 (05:45→21:08)
[2020-10-06] MEDS: BLOOD SUGAR DIAGNOSTIC STRIP TEST SCH ×4 (05:52→18:00)
[2020-10-06] MEDS: SODIUM CHLORIDE 0.9% 1,000 ML IV SCH (05:53)
[2020-10-06 06:17] LABS: HEMATOCRIT. 27.9 % (42.0-52.0); HEMOGLOBIN. 9.4 g/dL (14.0-18.0); MEAN CORPUSCULAR HEMOGLOBIN 32.5 pg (28.0-32.0); MEAN CORPUSCULAR VOLUME 95.8 fL (80.0-94.0); MEAN PLATELET VOLUME 7.4 fl (7.4-10.4); PLATELET 234 x1000/uL (130-400); RED BLOOD CELL COUNT 2.91 mill/uL (4.7-6.1); RED CELL DISTRIBUTION WIDTH 14.7 % (11.6-14.6)
[2020-10-06 06:32] LABS: PHOSPHORUS 3.2 mg/dL (2.5-4.9)
[2020-10-06 08:38] LABS: BG BASE EXCESS -3.8 mmol/L (-2.0-2.0); BG CARBOXYHEMOGLOBIN 0.3 % (0.5-1.5); BG DEOXYHEMOGLOBIN 2.1 % (0.0-5.0); BG FRACTION INSPIRED OXYGEN 30; BG HCO3 ACT 18.9 mmol/L (22.0-26.0); BG METHEMOGLOBIN 0.2 % (0.0-1.5); BG OXYGEN SATURATION 97.9 % (92.0-98.5); BG OXYHEMOGLOBIN 97.4 % (94.0-97.0); BG PCO2 26.6 mmHg (35.0-45.0); BG PH 7.469 (7.350-7.450); BG PO2 94.9 mmHg (75.0-100.0); BG SAMPLE SITE RIGHT BRACHIAL; BG VENT MODE VENT - AC
[2020-10-06] MEDS: VASOPRESSIN 20 UNIT in SODIUM CHLORIDE 0.9% 99 ML IV PRN ×2 (09:21→17:05)
[2020-10-06] MEDS: AZTREONAM 1 G in DEXTROSE 5% WATER 50 ML IV SCH ×2 (09:21→21:09)
[2020-10-06] MEDS: PANTOPRAZOLE SODIUM 40 MG/VIAL IV SCH (09:24)
[2020-10-06] MEDS ORDERED: VANCOMYCIN 1 G PREMIX 200 ML IV NR (12:00)
[2020-10-06] MEDS: FENTANYL CITRATE/PF 2,500 MCG in SODIUM CHLORIDE 0.9% 200 ML IV PRN (12:52)
[2020-10-06] MEDS ORDERED: DEXT 5%/0.9% NACL 1,000 ML IV SCH (13:15)
[2020-10-06] MEDS ORDERED: TOTAL PARENTERAL NUTRITION IV SCH (21:00)
[2020-10-07] VITALS (98 sets, daily range): BP systolic 68–154; BP diastolic 45–138
[2020-10-07] MEDS ORDERED: FENTANYL CITRATE/PF 2,500 MCG in SODIUM CHLORIDE 0.9% 200 ML IV PRN
[2020-10-07] MEDS: NOREPINEPHRINE 8 MG in DEXT 5% WATER 242 ML IV PRN (00:11)
[2020-10-07] MEDS: PHENYLEPHRINE 100 MG in DEXT 5% WATER 240 ML IV PRN ×4 (00:12→21:53)
[2020-10-07] MEDS: BLOOD SUGAR DIAGNOSTIC STRIP TEST SCH ×4 (00:39→17:55)
[2020-10-07] MEDS: FENTANYL CITRATE/PF 2,500 MCG in SODIUM CHLORIDE 0.9% 200 ML IV PRN (01:12)
[2020-10-07] MEDS: IPRATROPIUM/ALBUTEROL 0.5-3(2.5)MG/3ML NEB HHN SCH ×5 (02:12→20:34)
[2020-10-07] MEDS: VASOPRESSIN 20 UNIT in SODIUM CHLORIDE 0.9% 99 ML IV PRN ×2 (02:37→06:42)
[2020-10-07 05:46] LABS: CHLORIDE 98 mEq/L (98-107)
[2020-10-07 05:50] LABS: HEMATOCRIT. 28.1 % (42.0-52.0); HEMOGLOBIN. 9.3 g/dL (14.0-18.0); MEAN CORPUSCULAR HEMOGLOBIN 32.2 pg (28.0-32.0); MEAN CORPUSCULAR VOLUME 97.5 fL (80.0-94.0); MEAN PLATELET VOLUME 7.4 fl (7.4-10.4); PLATELET 269 x1000/uL (130-400); RED BLOOD CELL COUNT 2.88 mill/uL (4.7-6.1)
[2020-10-07 05:54] LABS: PHOSPHORUS 3.9 mg/dL (2.5-4.9)
[2020-10-07 08:36] LABS: BG BASE EXCESS -8.4 mmol/L (-2.0-2.0); BG CARBOXYHEMOGLOBIN 0.3 % (0.5-1.5); BG DEOXYHEMOGLOBIN 3.2 % (0.0-5.0); BG FRACTION INSPIRED OXYGEN 30; BG HCO3 ACT 16.9 mmol/L (22.0-26.0); BG METHEMOGLOBIN 0.3 % (0.0-1.5); BG OXYGEN SATURATION 96.8 % (92.0-98.5); BG OXYHEMOGLOBIN 96.2 % (94.0-97.0); BG PCO2 33.7 mmHg (35.0-45.0); BG PH 7.318 (7.350-7.450); BG PO2 90.9 mmHg (75.0-100.0); BG SAMPLE SITE RIGHT RADIAL; BG TOTAL HEMOGLOBIN 9.4 g/dL (12.0-18.0); BG VENT MODE VENT - AC/VC
[2020-10-07] MEDS: PANTOPRAZOLE SODIUM 40 MG/VIAL IV SCH (08:47)
[2020-10-07] MEDS ORDERED: TOTAL PARENTERAL NUTRITION 1,400 ML IV SCH (12:15)
[2020-10-07] MEDS ORDERED: MIDAZOLAM HCL 100 MG in SODIUM CHLORIDE 0.9% 80 ML IV PRN (13:15)
[2020-10-07 16:17] LABS: NUCLEATED RED BLOOD CELLS 3 /100 WBC; PLATELET ESTIMATE NORMAL
[2020-10-07 17:14] LABS: PLATELET ESTIMATE NORMAL
[2020-10-07] MEDS: EPOETIN ALFA-EPBX 4,000 UNIT/ML VIAL SUBCUT SCH (21:15)
[2020-10-07] MEDS: TOTAL PARENTERAL NUTRITION 1,400 ML IV SCH (21:16)
[2020-10-07] MEDS: FAT EMULSIONS 500 ML IV SCH (21:16)
[2020-10-08] VITALS (102 sets, daily range): BP systolic 72–116; BP diastolic 37–71
[2020-10-08] MEDS: PHENYLEPHRINE 100 MG in DEXT 5% WATER 240 ML IV PRN ×3 (01:47→21:51)
[2020-10-08] MEDS: FENTANYL CITRATE/PF 2,500 MCG in SODIUM CHLORIDE 0.9% 200 ML IV PRN (01:49)
[2020-10-08] MEDS: NOREPINEPHRINE 8 MG in DEXT 5% WATER 242 ML IV PRN (01:53)
[2020-10-08] MEDS: IPRATROPIUM/ALBUTEROL 0.5-3(2.5)MG/3ML NEB HHN SCH ×4 (03:20→20:24)
[2020-10-08 06:03] LABS: HEMATOCRIT. 24.9 % (42.0-52.0); HEMOGLOBIN. 8.5 g/dL (14.0-18.0); MEAN CORPUSCULAR HEMOGLOBIN 33.2 pg (28.0-32.0); MEAN CORPUSCULAR VOLUME 96.8 fL (80.0-94.0); RED BLOOD CELL COUNT 2.57 mill/uL (4.7-6.1); RED CELL DISTRIBUTION WIDTH 15.3 % (11.6-14.6)
[2020-10-08 06:18] LABS: PHOSPHORUS 2.1 mg/dL (2.5-4.9)
[2020-10-08] MEDS: BLOOD SUGAR DIAGNOSTIC STRIP TEST SCH ×2 (09:06)
[2020-10-08] MEDS: PANTOPRAZOLE SODIUM 40 MG/VIAL IV SCH (09:14)
[2020-10-08] MEDS: PHYTONADIONE 10MG/ML AMP SUBCUT SCH (09:14)
[2020-10-08 09:54] LABS: BG BASE EXCESS -2.2 mmol/L (-2.0-2.0); BG CARBOXYHEMOGLOBIN 0.3 % (0.5-1.5); BG DEOXYHEMOGLOBIN 3.7 % (0.0-5.0); BG FRACTION INSPIRED OXYGEN 30; BG HCO3 ACT 20.8 mmol/L (22.0-26.0); BG METHEMOGLOBIN 0.3 % (0.0-1.5); BG OXYGEN SATURATION 96.3 % (92.0-98.5); BG OXYHEMOGLOBIN 95.7 % (94.0-97.0); BG PCO2 29.2 mmHg (35.0-45.0); BG PO2 77.8 mmHg (75.0-100.0); BG SAMPLE SITE LEFT RADIAL; BG TOTAL HEMOGLOBIN 9.8 g/dL (12.0-18.0); BG VENT MODE VENT - AC
[2020-10-08] MEDS ORDERED: POTASSIUM CHLORIDE INJ 40 MEQ in DEXT 5% WATER 250 ML IV NR (11:30)
[2020-10-08 14:25] LABS: NUCLEATED RED BLOOD CELLS 1 /100 WBC
[2020-10-08 14:26] LABS: PLATELET ESTIMATE NORMAL
[2020-10-08] MEDS ORDERED: KCL 20MEQ/100ML PREMIX 100 ML IV NR (16:00)
[2020-10-08] MEDS: TOTAL PARENTERAL NUTRITION 1,400 ML IV SCH (21:48)
[2020-10-09] VITALS (88 sets, daily range): BP systolic 89–135; BP diastolic 46–78
[2020-10-09] MEDS: NOREPINEPHRINE 32 MG in DEXT 5% WATER 218 ML IV PRN (02:07)
[2020-10-09] MEDS: IPRATROPIUM/ALBUTEROL 0.5-3(2.5)MG/3ML NEB HHN SCH ×4 (02:57→20:29)
[2020-10-09] MEDS: PHENYLEPHRINE 100 MG in DEXT 5% WATER 240 ML IV PRN ×3 (04:26→18:38)
[2020-10-09] MEDS: BLOOD SUGAR DIAGNOSTIC STRIP TEST SCH (08:26)
[2020-10-09 08:51] LABS: BG BASE EXCESS 0.9 mmol/L (-2.0-2.0); BG CARBOXYHEMOGLOBIN 0.3 % (0.5-1.5); BG DEOXYHEMOGLOBIN 2.5 % (0.0-5.0); BG FRACTION INSPIRED OXYGEN 30; BG HCO3 ACT 22.7 mmol/L (22.0-26.0); BG METHEMOGLOBIN 0.4 % (0.0-1.5); BG OXYGEN SATURATION 97.5 % (92.0-98.5); BG OXYHEMOGLOBIN 96.8 % (94.0-97.0); BG PCO2 26.7 mmHg (35.0-45.0); BG PH 7.547 (7.350-7.450); BG PO2 85.8 mmHg (75.0-100.0); BG SAMPLE SITE RIGHT RADIAL; BG TOTAL HEMOGLOBIN 9.9 g/dL (12.0-18.0); BG VENT MODE VENT - AC
[2020-10-09] MEDS: PANTOPRAZOLE SODIUM 40 MG/VIAL IV SCH (09:21)
[2020-10-09 13:04] LABS: HEMOGLOBIN 9.2 g/dL (14.0-18.0); MEAN CORPUSCULAR HEMOGLOBIN 33.1 pg (28.0-32.0); MEAN CORPUSCULAR VOLUME 97.5 fL (80.0-94.0); PLATELET 386 x1000/uL (130-400); RED BLOOD CELL COUNT 2.77 mill/uL (4.7-6.1); RED CELL DISTRIBUTION WIDTH 15.4 % (11.6-14.6)
[2020-10-09 13:38] LABS: BG BASE EXCESS 1.9 mmol/L (-2.0-2.0); BG DEOXYHEMOGLOBIN 2.8 % (0.0-5.0); BG FRACTION INSPIRED OXYGEN 40; BG HCO3 ACT 26.3 mmol/L (22.0-26.0); BG METHEMOGLOBIN 0.3 % (0.0-1.5); BG OXYGEN SATURATION 97.2 % (92.0-98.5); BG OXYHEMOGLOBIN 96.9 % (94.0-97.0); BG PCO2 40.4 mmHg (35.0-45.0); BG PH 7.431 (7.350-7.450); BG PO2 92.5 mmHg (75.0-100.0); BG SAMPLE SITE RIGHT RADIAL; BG TOTAL HEMOGLOBIN 10.2 g/dL (12.0-18.0); BG VENT MODE VENT - CPAP
[2020-10-09] MEDS: TOTAL PARENTERAL NUTRITION 1,400 ML IV SCH (21:23)
[2020-10-09] MEDS: FAT EMULSIONS 500 ML IV SCH (21:24)
[2020-10-09] MEDS: EPOETIN ALFA-EPBX 4,000 UNIT/ML VIAL SUBCUT SCH (21:25)
[2020-10-10] VITALS (77 sets, daily range): BP systolic 86–144; BP diastolic 33–102
[2020-10-10] MEDS: IPRATROPIUM/ALBUTEROL 0.5-3(2.5)MG/3ML NEB HHN SCH ×3 (01:23→14:10)
[2020-10-10] MEDS: PHENYLEPHRINE 100 MG in DEXT 5% WATER 240 ML IV PRN ×3 (01:34→19:11)
[2020-10-10 06:43] LABS: PHOSPHORUS 2.6 mg/dL (2.5-4.9)
[2020-10-10] MEDS: ACETAMINOPHEN 325MG TABLET PO PRN ×2 (08:10→18:30)
[2020-10-10] MEDS: BLOOD SUGAR DIAGNOSTIC STRIP TEST SCH (09:24)
[2020-10-10] MEDS: PANTOPRAZOLE SODIUM 40 MG/VIAL IV SCH (09:24)
[2020-10-10] MEDS ORDERED: NALOXONE HCL 0.4MG/ML VIAL IV PRN (12:00)
[2020-10-10 12:34] LABS: HEMATOCRIT. 27.7 % (42.0-52.0); HEMOGLOBIN. 8.8 g/dL (14.0-18.0); MEAN CORPUSCULAR HEMOGLOBIN 31.2 pg (28.0-32.0); MEAN CORPUSCULAR VOLUME 98.1 fL (80.0-94.0); MEAN PLATELET VOLUME 7.2 fl (7.4-10.4); PLATELET 449 x1000/uL (130-400); RED BLOOD CELL COUNT 2.83 mill/uL (4.7-6.1); RED CELL DISTRIBUTION WIDTH 15.3 % (11.6-14.6)
[2020-10-10] MEDS: DOCUSATE SODIUM 100MG CAPSULE PO PRN (13:58)
[2020-10-10 14:21] LABS: PLATELET ESTIMATE SLIGHTLY INCREASED
[2020-10-10] MEDS: VASOPRESSIN 20 UNIT in SODIUM CHLORIDE 0.9% 99 ML IV PRN (17:55)
[2020-10-10] MEDS: MORPHINE SULFATE 2 MG/ML CPJ (NOT FOR IM USE) IV PRN ×2 (19:00→23:47)
[2020-10-10] MEDS: TOTAL PARENTERAL NUTRITION 1,400 ML IV SCH (21:04)
[2020-10-11] VITALS (89 sets, daily range): BP systolic 64–151; BP diastolic 30–129
[2020-10-11] MEDS: IPRATROPIUM/ALBUTEROL 0.5-3(2.5)MG/3ML NEB HHN SCH ×4 (01:09→20:53)
[2020-10-11] MEDS: MORPHINE SULFATE 2 MG/ML CPJ (NOT FOR IM USE) IV PRN ×3 (04:57→21:51)
[2020-10-11 05:46] LABS: PHOSPHORUS 2.1 mg/dL (2.5-4.9)
[2020-10-11 05:50] LABS: HEMATOCRIT. 27.1 % (42.0-52.0); HEMOGLOBIN. 8.9 g/dL (14.0-18.0); MEAN CORPUSCULAR HEMOGLOBIN 31.8 pg (28.0-32.0); MEAN CORPUSCULAR VOLUME 97.2 fL (80.0-94.0); MEAN PLATELET VOLUME 7.5 fl (7.4-10.4); PLATELET 463 x1000/uL (130-400); RED BLOOD CELL COUNT 2.79 mill/uL (4.7-6.1); RED CELL DISTRIBUTION WIDTH 15.3 % (11.6-14.6)
[2020-10-11] MEDS: BLOOD SUGAR DIAGNOSTIC STRIP TEST SCH (09:16)
[2020-10-11] MEDS: PANTOPRAZOLE SODIUM 40 MG/VIAL IV SCH (09:16)
[2020-10-11 12:36] LABS: PLATELET ESTIMATE INCREASED
[2020-10-11] MEDS: ACETAMINOPHEN 325MG TABLET PO PRN (15:42)
[2020-10-11] MEDS: TOTAL PARENTERAL NUTRITION 1,400 ML IV SCH (21:29)
[2020-10-12] VITALS (88 sets, daily range): BP systolic 41–196; BP diastolic 15–157
[2020-10-12] MEDS: PHENYLEPHRINE 100 MG in DEXT 5% WATER 240 ML IV PRN ×2 (01:00→13:19)
[2020-10-12] MEDS: IPRATROPIUM/ALBUTEROL 0.5-3(2.5)MG/3ML NEB HHN SCH ×4 (01:35→20:44)
[2020-10-12] MEDS: MORPHINE SULFATE 2 MG/ML CPJ (NOT FOR IM USE) IV PRN ×6 (02:09→20:37)
[2020-10-12 05:33] LABS: HEMATOCRIT. 27.2 % (42.0-52.0); HEMOGLOBIN. 8.7 g/dL (14.0-18.0); MEAN CORPUSCULAR HEMOGLOBIN 31.2 pg (28.0-32.0); MEAN PLATELET VOLUME 8.2 fl (7.4-10.4); PLATELET 481 x1000/uL (130-400); RED CELL DISTRIBUTION WIDTH 15.7 % (11.6-14.6)
[2020-10-12 06:10] LABS: PHOSPHORUS 2.4 mg/dL (2.5-4.9)
[2020-10-12] MEDS: BLOOD SUGAR DIAGNOSTIC STRIP TEST SCH (09:00)
[2020-10-12] MEDS ORDERED: MORPHINE SULFATE 2 MG/ML CPJ (NOT FOR IM USE) IV SCH (09:20)
[2020-10-12] MEDS: PANTOPRAZOLE SODIUM 40 MG/VIAL IV SCH (09:38)
[2020-10-12 16:37] LABS: PLATELET ESTIMATE INCREASED
[2020-10-12] MEDS: FAT EMULSIONS 500 ML IV SCH (20:59)
[2020-10-12] MEDS: TOTAL PARENTERAL NUTRITION 1,400 ML IV SCH (20:59)
[2020-10-12] MEDS: EPOETIN ALFA-EPBX 4,000 UNIT/ML VIAL SUBCUT SCH (21:00)
[2020-10-13] VITALS (87 sets, daily range): BP systolic 84–135; BP diastolic 24–83
[2020-10-13] MEDS: MORPHINE SULFATE 2 MG/ML CPJ (NOT FOR IM USE) IV PRN ×6 (00:06→17:40)
[2020-10-13] MEDS: PHENYLEPHRINE 100 MG in DEXT 5% WATER 240 ML IV PRN ×2 (00:08→12:51)
[2020-10-13] MEDS: IPRATROPIUM/ALBUTEROL 0.5-3(2.5)MG/3ML NEB HHN SCH ×4 (00:22→20:41)
[2020-10-13] MEDS: DIPHENHYDRAMINE 50MG/ML VIAL IV PRN ×2 (01:37→07:29)
[2020-10-13 07:05] LABS: HEMATOCRIT. 25.9 % (42.0-52.0); HEMOGLOBIN. 8.7 g/dL (14.0-18.0); MEAN CORPUSCULAR HEMOGLOBIN 33.3 pg (28.0-32.0); PLATELET 493 x1000/uL (130-400); RED BLOOD CELL COUNT 2.61 mill/uL (4.7-6.1); RED CELL DISTRIBUTION WIDTH 16.1 % (11.6-14.6)
[2020-10-13 07:08] LABS: PHOSPHORUS 1.9 mg/dL (2.5-4.9)
[2020-10-13] MEDS: PANTOPRAZOLE SODIUM 40 MG/VIAL IV SCH (09:00)
[2020-10-13] MEDS: BLOOD SUGAR DIAGNOSTIC STRIP TEST SCH (09:27)
[2020-10-13] MEDS ORDERED: SODIUM PHOS,M-BASIC-D-BASIC 10 MM in DEXT 5% WATER 246.6667 ML IV SCH (12:00)
[2020-10-13 17:47] LABS: PLATELET ESTIMATE INCREASED
[2020-10-13] MEDS: TOTAL PARENTERAL NUTRITION 1,400 ML IV SCH (20:31)
[2020-10-14] VITALS (92 sets, daily range): BP systolic 88–132; BP diastolic 44–86
[2020-10-14] MEDS: PHENYLEPHRINE 100 MG in DEXT 5% WATER 240 ML IV PRN ×2 (00:43→12:16)
[2020-10-14] MEDS: IPRATROPIUM/ALBUTEROL 0.5-3(2.5)MG/3ML NEB HHN SCH ×4 (01:46→20:41)
[2020-10-14 05:42] LABS: HEMATOCRIT. 24.4 % (42.0-52.0); HEMOGLOBIN. 8.1 g/dL (14.0-18.0); MEAN CORPUSCULAR HEMOGLOBIN 32.3 pg (28.0-32.0); MEAN CORPUSCULAR VOLUME 97.4 fL (80.0-94.0); MEAN PLATELET VOLUME 6.9 fl (7.4-10.4); PLATELET 528 x1000/uL (130-400); RED BLOOD CELL COUNT 2.51 mill/uL (4.7-6.1); RED CELL DISTRIBUTION WIDTH 15.7 % (11.6-14.6)
[2020-10-14 05:50] LABS: PHOSPHORUS 3.1 mg/dL (2.5-4.9)
[2020-10-14] MEDS: MORPHINE SULFATE 2 MG/ML CPJ (NOT FOR IM USE) IV PRN ×3 (05:57→20:12)
[2020-10-14] MEDS: DIPHENHYDRAMINE 50MG/ML VIAL IV PRN ×2 (07:11→18:06)
[2020-10-14] MEDS: BLOOD SUGAR DIAGNOSTIC STRIP TEST SCH (09:00)
[2020-10-14] MEDS: PANTOPRAZOLE SODIUM 40 MG/VIAL IV SCH (09:23)
[2020-10-14 19:52] LABS: PLATELET ESTIMATE INCREASED
[2020-10-14] MEDS: TOTAL PARENTERAL NUTRITION 1,400 ML IV SCH (20:43)
[2020-10-14] MEDS: FAT EMULSIONS 500 ML IV SCH (20:43)
[2020-10-14] MEDS: EPOETIN ALFA-EPBX 4,000 UNIT/ML VIAL SUBCUT SCH (20:46)
[2020-10-15] VITALS (94 sets, daily range): BP systolic 88–129; BP diastolic 28–76
[2020-10-15] MEDS: PHENYLEPHRINE 100 MG in DEXT 5% WATER 240 ML IV PRN ×2 (00:18→13:01)
[2020-10-15] MEDS: IPRATROPIUM/ALBUTEROL 0.5-3(2.5)MG/3ML NEB HHN SCH ×4 (02:18→20:58)
[2020-10-15] MEDS: DIPHENHYDRAMINE 50MG/ML VIAL IV PRN ×4 (04:08→23:19)
[2020-10-15] MEDS: MORPHINE SULFATE 2 MG/ML CPJ (NOT FOR IM USE) IV PRN ×2 (04:09→20:45)
[2020-10-15 05:59] LABS: HEMATOCRIT. 23.1 % (42.0-52.0); HEMOGLOBIN. 7.9 g/dL (14.0-18.0); MEAN CORPUSCULAR HEMOGLOBIN 32.9 pg (28.0-32.0); MEAN CORPUSCULAR VOLUME 96.7 fL (80.0-94.0); MEAN PLATELET VOLUME 6.9 fl (7.4-10.4); PLATELET 533 x1000/uL (130-400); RED BLOOD CELL COUNT 2.39 mill/uL (4.7-6.1); RED CELL DISTRIBUTION WIDTH 16.1 % (11.6-14.6)
[2020-10-15 06:07] LABS: PHOSPHORUS 2.5 mg/dL (2.5-4.9)
[2020-10-15] MEDS: PHYTONADIONE 10MG/ML AMP SUBCUT SCH (09:16)
[2020-10-15] MEDS: BLOOD SUGAR DIAGNOSTIC STRIP TEST SCH (09:16)
[2020-10-15] MEDS: PANTOPRAZOLE SODIUM 40 MG/VIAL IV SCH (09:16)
[2020-10-15 09:38] LABS: PLATELET ESTIMATE INCREASED
[2020-10-15] MEDS ORDERED: LEVOFLOXACIN 500MG PREMIX 100 ML IV SCH (11:45)
[2020-10-15] MEDS ORDERED: PIPERACILLIN/TAZOBACTAM 2.25 G in DEXTROSE 5% WATER 50 ML IV SCH (14:00)
[2020-10-15] MEDS: CEFEPIME 500 MG in DEXTROSE 5% WATER 50 ML IV SCH (14:35)
[2020-10-15] MEDS: METRONIDAZOLE 500 MG PREMIX 100 ML IV SCH ×2 (14:36→20:36)
[2020-10-15] MEDS: TOTAL PARENTERAL NUTRITION 1,400 ML IV SCH (21:55)
[2020-10-16] VITALS (99 sets, daily range): BP systolic 53–133; BP diastolic 32–95
[2020-10-16] MEDS: IPRATROPIUM/ALBUTEROL 0.5-3(2.5)MG/3ML NEB HHN SCH ×4 (00:03→20:24)
[2020-10-16] MEDS: METRONIDAZOLE 500 MG PREMIX 100 ML IV SCH ×3 (06:13→21:33)
[2020-10-16] MEDS: DIPHENHYDRAMINE 50MG/ML VIAL IV PRN ×3 (06:13→18:57)
[2020-10-16] MEDS: PHENYLEPHRINE 100 MG in DEXT 5% WATER 240 ML IV PRN ×2 (06:44→22:37)
[2020-10-16 07:05] LABS: PHOSPHORUS 3.2 mg/dL (2.5-4.9)
[2020-10-16] MEDS: PANTOPRAZOLE SODIUM 40 MG/VIAL IV SCH (09:09)
[2020-10-16] MEDS: BLOOD SUGAR DIAGNOSTIC STRIP TEST SCH (09:09)
[2020-10-16] MEDS: ACETAMINOPHEN 325MG TABLET PO PRN (13:12)
[2020-10-16] MEDS: CEFEPIME 500 MG in DEXTROSE 5% WATER 50 ML IV SCH (13:33)
[2020-10-16 15:32] LABS: HEMATOCRIT. 21.2 % (42.0-52.0); HEMOGLOBIN. 7.3 g/dL (14.0-18.0); MEAN CORPUSCULAR VOLUME 96.2 fL (80.0-94.0); MEAN PLATELET VOLUME 7.1 fl (7.4-10.4); PLATELET 494 x1000/uL (130-400); RED BLOOD CELL COUNT 2.21 mill/uL (4.7-6.1)
[2020-10-16 17:03] LABS: MEAN CORPUSCULAR HEMOGLOBIN 33.3 pg (28.0-32.0); MEAN CORPUSCULAR VOLUME 98.2 fL (80.0-94.0); MEAN PLATELET VOLUME 6.9 fl (7.4-10.4); PLATELET 469 x1000/uL (130-400); RED BLOOD CELL COUNT 2.11 mill/uL (4.7-6.1)
[2020-10-16 17:23] LABS: HEMATOCRIT. 20.7 % (42.0-52.0)
[2020-10-16 17:59] LABS: PLATELET ESTIMATE INCREASED
[2020-10-16 19:32] LABS: PLATELET ESTIMATE INCREASED
[2020-10-16] MEDS: MORPHINE SULFATE 2 MG/ML CPJ (NOT FOR IM USE) IV PRN (19:34)
[2020-10-16] MEDS: FAT EMULSIONS 500 ML IV SCH (20:28)
[2020-10-16] MEDS: TOTAL PARENTERAL NUTRITION 1,400 ML IV SCH (20:29)
[2020-10-16] MEDS: EPOETIN ALFA-EPBX 10,000 UNIT/ML VIAL SUBCUT SCH (21:32)
[2020-10-17] VITALS (97 sets, daily range): BP systolic 68–131; BP diastolic 28–90
[2020-10-17] MEDS: IPRATROPIUM/ALBUTEROL 0.5-3(2.5)MG/3ML NEB HHN SCH ×4 (02:11→20:41)
[2020-10-17] MEDS: MORPHINE SULFATE 2 MG/ML CPJ (NOT FOR IM USE) IV PRN ×3 (02:48→08:07)
[2020-10-17] MEDS: DIPHENHYDRAMINE 50MG/ML VIAL IV PRN ×4 (02:48→19:33)
[2020-10-17] MEDS: METRONIDAZOLE 500 MG PREMIX 100 ML IV SCH ×3 (06:00→22:00)
[2020-10-17 06:12] LABS: HEMATOCRIT. 23.8 % (42.0-52.0); MEAN CORPUSCULAR HEMOGLOBIN 33.5 pg (28.0-32.0); MEAN CORPUSCULAR VOLUME 99.7 fL (80.0-94.0); MEAN PLATELET VOLUME 7.2 fl (7.4-10.4); PLATELET 524 x1000/uL (130-400); RED BLOOD CELL COUNT 2.39 mill/uL (4.7-6.1)
[2020-10-17] MEDS: PHENYLEPHRINE 100 MG in DEXT 5% WATER 240 ML IV PRN (08:07)
[2020-10-17] MEDS: PANTOPRAZOLE SODIUM 40 MG/VIAL IV SCH (08:07)
[2020-10-17] MEDS: BLOOD SUGAR DIAGNOSTIC STRIP TEST SCH (09:01)
[2020-10-17] MEDS: HYDROCODONE/ACETAMINOPHEN 5/325MG TABLET PO PRN ×3 (10:43→19:34)
[2020-10-17 11:13] LABS: PLATELET ESTIMATE INCREASED
[2020-10-17] MEDS: MIDODRINE HCL 5MG TABLET PO SCH ×2 (12:11→16:10)
[2020-10-17] MEDS: CEFEPIME 500 MG in DEXTROSE 5% WATER 50 ML IV SCH (13:01)
[2020-10-17] MEDS: TOTAL PARENTERAL NUTRITION 1,400 ML IV SCH (21:00)
[2020-10-18] VITALS (97 sets, daily range): BP systolic 73–128; BP diastolic 17–83
[2020-10-18] MEDS: PHENYLEPHRINE 100 MG in DEXT 5% WATER 240 ML IV PRN ×3 (02:13→14:55)
[2020-10-18] MEDS: IPRATROPIUM/ALBUTEROL 0.5-3(2.5)MG/3ML NEB HHN SCH ×4 (02:29→20:50)
[2020-10-18 05:47] LABS: HEMATOCRIT. 22.1 % (42.0-52.0); HEMOGLOBIN. 7.3 g/dL (14.0-18.0); MEAN CORPUSCULAR HEMOGLOBIN 31.8 pg (28.0-32.0); MEAN CORPUSCULAR VOLUME 96.9 fL (80.0-94.0); MEAN PLATELET VOLUME 7.1 fl (7.4-10.4); PLATELET 525 x1000/uL (130-400); RED BLOOD CELL COUNT 2.28 mill/uL (4.7-6.1); RED CELL DISTRIBUTION WIDTH 15.7 % (11.6-14.6)
[2020-10-18] MEDS: METRONIDAZOLE 500 MG PREMIX 100 ML IV SCH ×3 (06:08→21:13)
[2020-10-18] MEDS: DIPHENHYDRAMINE 50MG/ML VIAL IV PRN ×3 (06:09→21:44)
[2020-10-18] MEDS: HYDROCODONE/ACETAMINOPHEN 5/325MG TABLET PO PRN ×2 (06:09→13:03)
[2020-10-18] MEDS: BLOOD SUGAR DIAGNOSTIC STRIP TEST SCH (08:53)
[2020-10-18] MEDS: MIDODRINE HCL 5MG TABLET PO SCH ×3 (08:53→17:02)
[2020-10-18] MEDS: PANTOPRAZOLE SODIUM 40 MG/VIAL IV SCH (08:53)
[2020-10-18 10:25] LABS: PLATELET ESTIMATE INCREASED
[2020-10-18] MEDS ORDERED: MIDODRINE HCL 5MG TABLET PO SCH (13:00)
[2020-10-18] MEDS: CEFEPIME 500 MG in DEXTROSE 5% WATER 50 ML IV SCH (13:06)
[2020-10-18] MEDS: TOTAL PARENTERAL NUTRITION 1,400 ML IV SCH (21:11)
[2020-10-19] VITALS (101 sets, daily range): BP systolic 71–170; BP diastolic 17–113
[2020-10-19] MEDS: PHENYLEPHRINE 100 MG in DEXT 5% WATER 240 ML IV PRN ×2 (01:42→11:52)
[2020-10-19] MEDS: MIDODRINE HCL 5MG TABLET PO SCH ×4 (01:47→18:01)
[2020-10-19] MEDS: ACETAMINOPHEN 325MG TABLET PO PRN (01:48)
[2020-10-19] MEDS: IPRATROPIUM/ALBUTEROL 0.5-3(2.5)MG/3ML NEB HHN SCH ×4 (01:56→20:46)
[2020-10-19] MEDS: METRONIDAZOLE 500 MG PREMIX 100 ML IV SCH (05:51)
[2020-10-19 05:52] LABS: CHLORIDE 109 mEq/L (98-107)
[2020-10-19 06:02] LABS: PHOSPHORUS 2.7 mg/dL (2.5-4.9)
[2020-10-19] MEDS: DIPHENHYDRAMINE 50MG/ML VIAL IV PRN ×3 (06:07→21:33)
[2020-10-19] MEDS: HYDROCODONE/ACETAMINOPHEN 5/325MG TABLET PO PRN (06:08)
[2020-10-19 06:20] LABS: HEMATOCRIT. 28.5 % (42.0-52.0); HEMOGLOBIN. 9.6 g/dL (14.0-18.0); MEAN CORPUSCULAR HEMOGLOBIN 32.1 pg (28.0-32.0); MEAN CORPUSCULAR VOLUME 95.4 fL (80.0-94.0); RED BLOOD CELL COUNT 2.98 mill/uL (4.7-6.1); RED CELL DISTRIBUTION WIDTH 16.3 % (11.6-14.6)
[2020-10-19] MEDS: PANTOPRAZOLE SODIUM 40 MG/VIAL IV SCH (08:43)
[2020-10-19] MEDS: BLOOD SUGAR DIAGNOSTIC STRIP TEST SCH (08:43)
[2020-10-19 09:23] LABS: PLATELET ESTIMATE INCREASED
[2020-10-19 09:25] LABS: MEAN PLATELET VOLUME 8.3 fl (7.4-10.4); PLATELET 482 x1000/uL (130-400)
[2020-10-19] MEDS ORDERED: MAGNESIUM 1 G PREMIX 100 ML IV ONE (11:45)
[2020-10-19] MEDS ORDERED: NALOXONE HCL 0.4MG/ML VIAL IV PRN (15:00)
[2020-10-19] MEDS: MEROPENEM 1,000 MG in SODIUM CHLORIDE 0.9% 100 ML IV SCH (15:27)
[2020-10-19] MEDS ORDERED: FLUCONAZOLE 400MG/200ML BAG 200 ML IV SCH (15:30)
[2020-10-19] MEDS ORDERED: AMIKACIN 500MG in SODIUM CHLORIDE 0.9% 100ML IV NR (17:00)
[2020-10-19] MEDS: FAT EMULSIONS 500 ML IV SCH (19:55)
[2020-10-19] MEDS: TOTAL PARENTERAL NUTRITION 1,400 ML IV SCH (19:56)
[2020-10-19] MEDS: EPOETIN ALFA-EPBX 10,000 UNIT/ML VIAL SUBCUT SCH (22:00)
[2020-10-20] VITALS (108 sets, daily range): BP systolic 60–184; BP diastolic 14–128
[2020-10-20] MEDS: MIDODRINE HCL 5MG TABLET PO SCH ×4 (00:35→17:14)
[2020-10-20] MEDS: IPRATROPIUM/ALBUTEROL 0.5-3(2.5)MG/3ML NEB HHN SCH ×4 (01:08→20:40)
[2020-10-20] MEDS: DIPHENHYDRAMINE 50MG/ML VIAL IV PRN ×2 (05:30→12:02)
[2020-10-20 06:29] LABS: PHOSPHORUS 2.3 mg/dL (2.5-4.9)
[2020-10-20] MEDS ORDERED: LIDOCAINE HCL/PF 1% 2ML VIAL ONE (07:24)
[2020-10-20 08:12] LABS: BG BASE EXCESS -6.3 mmol/L (-2.0-2.0); BG CARBOXYHEMOGLOBIN 0.2 % (0.5-1.5); BG DEOXYHEMOGLOBIN 1.1 % (0.0-5.0); BG FRACTION INSPIRED OXYGEN 100; BG HCO3 ACT 17.9 mmol/L (22.0-26.0); BG METHEMOGLOBIN 0.8 % (0.0-1.5); BG OXYGEN SATURATION 98.9 % (92.0-98.5); BG OXYHEMOGLOBIN 97.9 % (94.0-97.0); BG PCO2 30.8 mmHg (35.0-45.0); BG PH 7.381 (7.350-7.450); BG PO2 153.5 mmHg (75.0-100.0); BG SAMPLE SITE RIGHT BRACHIAL; BG VENT MODE MASK - NRB
[2020-10-20] MEDS: BLOOD SUGAR DIAGNOSTIC STRIP TEST SCH (09:00)
[2020-10-20] MEDS: VASOPRESSIN 20 UNIT in SODIUM CHLORIDE 0.9% 99 ML IV PRN ×2 (09:29→21:24)
[2020-10-20] MEDS ORDERED: MAGNESIUM 1 G PREMIX 100 ML IV ONE (09:30)
[2020-10-20] MEDS: NOREPINEPHRINE 32 MG in DEXT 5% WATER 218 ML IV PRN (10:06)
[2020-10-20] MEDS: PHENYLEPHRINE 100 MG in DEXT 5% WATER 240 ML IV PRN ×2 (10:09→18:16)
[2020-10-20] MEDS ORDERED: SODIUM PHOS,M-BASIC-D-BASIC 15 MM in DEXTROSE 5% WATER 250 ML IV NR (11:30)
[2020-10-20] MEDS: DOCUSATE SODIUM 100MG CAPSULE PO PRN (12:00)
[2020-10-20] MEDS: PANTOPRAZOLE SODIUM 40 MG/VIAL IV SCH (12:00)
[2020-10-20] MEDS: MICAFUNGIN 100MG in NORMAL SALINE 100ML IV SCH (12:01)
[2020-10-20] MEDS: MEROPENEM 1,000 MG in SODIUM CHLORIDE 0.9% 100 ML IV SCH (14:05)
[2020-10-20] MEDS ORDERED: LIDOCAINE HCL 1% 20ML VIAL (Pyxis) INJ ONE (15:02)
[2020-10-20] MEDS ORDERED: METOPROLOL TARTRATE 5MG/5ML VIAL IV PRN (15:15)
[2020-10-20 16:38] LABS: HEMATOCRIT. 28.5 % (42.0-52.0); MEAN CORPUSCULAR VOLUME 98.4 fL (80.0-94.0); MEAN PLATELET VOLUME 8.6 fl (7.4-10.4); PLATELET 388 x1000/uL (130-400); RED CELL DISTRIBUTION WIDTH 17.1 % (11.6-14.6)
[2020-10-20] MEDS: HYDROCODONE/ACETAMINOPHEN 5/325MG TABLET PO PRN (16:52)
[2020-10-20] MEDS ORDERED: MORPHINE SULFATE 2 MG/ML CPJ (NOT FOR IM USE) IV PRN ×2 (17:15→21:15)
[2020-10-20 17:22] LABS: PLATELET ESTIMATE NORMAL
[2020-10-20] MEDS ORDERED: METOPROLOL TARTRATE 25MG TABLET PO SCH (21:00)
[2020-10-20] MEDS ORDERED: ACETAMINOPHEN 650MG SUPP PR PRN (21:30)
[2020-10-20] MEDS: TOTAL PARENTERAL NUTRITION 1,400 ML IV SCH (21:36)
[2020-10-21] VITALS (79 sets, daily range): BP systolic 48–174; BP diastolic 18–126
[2020-10-21] MEDS: PHENYLEPHRINE 100 MG in DEXT 5% WATER 240 ML IV PRN ×4 (00:33→20:55)
[2020-10-21] MEDS: IPRATROPIUM/ALBUTEROL 0.5-3(2.5)MG/3ML NEB HHN SCH ×4 (02:03→20:35)
[2020-10-21] MEDS: VASOPRESSIN 20 UNIT in SODIUM CHLORIDE 0.9% 99 ML IV PRN ×2 (04:57→16:52)
[2020-10-21 05:46] LABS: PHOSPHORUS 2.9 mg/dL (2.5-4.9)
[2020-10-21] MEDS: MIDODRINE HCL 5MG TABLET PO SCH ×4 (06:00→18:00)
[2020-10-21] MEDS: PANTOPRAZOLE SODIUM 40 MG/VIAL IV SCH (09:37)
[2020-10-21] MEDS: BLOOD SUGAR DIAGNOSTIC STRIP TEST SCH (09:37)
[2020-10-21] MEDS ORDERED: MAGNESIUM 2 G PREMIX 50 ML IV NR (10:30)
[2020-10-21 11:26] LABS: BG BASE EXCESS -4.8 mmol/L (-2.0-2.0); BG CARBOXYHEMOGLOBIN 0.3 % (0.5-1.5); BG DEOXYHEMOGLOBIN 1.2 % (0.0-5.0); BG FRACTION INSPIRED OXYGEN 100; BG HCO3 ACT 20.2 mmol/L (22.0-26.0); BG METHEMOGLOBIN 0.1 % (0.0-1.5); BG OXYGEN SATURATION 98.8 % (92.0-98.5); BG OXYHEMOGLOBIN 98.4 % (94.0-97.0); BG PCO2 37.1 mmHg (35.0-45.0); BG PH 7.354 (7.350-7.450); BG PO2 110.5 mmHg (75.0-100.0); BG SAMPLE SITE RIGHT RADIAL; BG TOTAL HEMOGLOBIN 9.2 g/dL (12.0-18.0); BG VENT MODE MASK - NRB
[2020-10-21] MEDS: MICAFUNGIN 100MG in NORMAL SALINE 100ML IV SCH (11:51)
[2020-10-21] MEDS: MEROPENEM 1,000 MG in SODIUM CHLORIDE 0.9% 100 ML IV SCH (16:13)
[2020-10-21] MEDS ORDERED: DOPAMINE 800MG PREMIX (DOUBLE) 250 ML IV PRN (16:45)
[2020-10-21] MEDS: NOREPINEPHRINE 32 MG in DEXT 5% WATER 218 ML IV PRN (17:40)
[2020-10-21] MEDS: EPOETIN ALFA-EPBX 10,000 UNIT/ML VIAL SUBCUT SCH (20:54)
[2020-10-21] MEDS: FAT EMULSIONS 500 ML IV SCH (20:56)
[2020-10-21] MEDS: TOTAL PARENTERAL NUTRITION 1,400 ML IV SCH (20:56)
[2020-10-22] VITALS (48 sets, daily range): BP systolic 44–148; BP diastolic 33–110
[2020-10-22] MEDS: VASOPRESSIN 20 UNIT in SODIUM CHLORIDE 0.9% 99 ML IV PRN ×3 (01:09→14:51)
[2020-10-22] MEDS: IPRATROPIUM/ALBUTEROL 0.5-3(2.5)MG/3ML NEB HHN SCH ×4 (02:04→20:34)
[2020-10-22] MEDS: PHENYLEPHRINE 100 MG in DEXT 5% WATER 240 ML IV PRN ×4 (03:17→20:50)
[2020-10-22] MEDS: NOREPINEPHRINE 32 MG in DEXT 5% WATER 218 ML IV PRN ×2 (03:17→14:50)
[2020-10-22] MEDS: MIDODRINE HCL 5MG TABLET PO SCH ×4 (06:00→17:37)
[2020-10-22] MEDS ORDERED: ETOMIDATE 2MG/ML 10ML VIAL IV ONE (08:11)
[2020-10-22] MEDS ORDERED: VECURONIUM BROMIDE 10 MG/VIAL IV ONE (08:11)
[2020-10-22] MEDS: PANTOPRAZOLE SODIUM 40 MG/VIAL IV SCH (08:29)
[2020-10-22] MEDS: BLOOD SUGAR DIAGNOSTIC STRIP TEST SCH (09:07)
[2020-10-22] MEDS: FENTANYL CITRATE/PF 2,500 MCG in SODIUM CHLORIDE 0.9% 200 ML IV PRN (10:28)
[2020-10-22] MEDS ORDERED: MIDAZOLAM HCL 100 MG in SODIUM CHLORIDE 0.9% 80 ML IV PRN (10:30)
[2020-10-22 11:19] LABS: BG BASE EXCESS -6.1 mmol/L (-2.0-2.0); BG CARBOXYHEMOGLOBIN 0.3 % (0.5-1.5); BG DEOXYHEMOGLOBIN 4.9 % (0.0-5.0); BG FRACTION INSPIRED OXYGEN 100; BG HCO3 ACT 20.7 mmol/L (22.0-26.0); BG METHEMOGLOBIN 0.5 % (0.0-1.5); BG OXYGEN SATURATION 95.1 % (92.0-98.5); BG OXYHEMOGLOBIN 94.3 % (94.0-97.0); BG PCO2 47.2 mmHg (35.0-45.0); BG PO2 88.5 mmHg (75.0-100.0); BG SAMPLE SITE RIGHT RADIAL; BG TOTAL HEMOGLOBIN 9.6 g/dL (12.0-18.0); BG VENT MODE VENT - PRVC
[2020-10-22] MEDS: MICAFUNGIN 100MG in NORMAL SALINE 100ML IV SCH (12:59)
[2020-10-22 13:16] LABS: PHOSPHORUS 2.1 mg/dL (2.5-4.9)
[2020-10-22 13:38] LABS: HEMATOCRIT. 28.4 % (42.0-52.0); HEMOGLOBIN. 9.7 g/dL (14.0-18.0); MEAN CORPUSCULAR HEMOGLOBIN 32.9 pg (28.0-32.0); MEAN CORPUSCULAR VOLUME 96.8 fL (80.0-94.0); MEAN PLATELET VOLUME 8.9 fl (7.4-10.4); PLATELET 365 x1000/uL (130-400); RED BLOOD CELL COUNT 2.93 mill/uL (4.7-6.1); RED CELL DISTRIBUTION WIDTH 16.7 % (11.6-14.6)
[2020-10-22] MEDS: MEROPENEM 1,000 MG in SODIUM CHLORIDE 0.9% 100 ML IV SCH (13:53)
[2020-10-22] MEDS ORDERED: AMIKACIN SULFATE 500 MG in SODIUM CHLORIDE 0.9% 100 ML IV SCH (14:00)
[2020-10-22 14:05] LABS: NUCLEATED RED BLOOD CELLS 18 /100 WBC; PLATELET ESTIMATE NORMAL
[2020-10-22] MEDS: ACETYLCYSTEINE 100MG/ML 10% VIAL 4ML INH SCH (14:30)
[2020-10-22] MEDS: TOTAL PARENTERAL NUTRITION 1,400 ML IV SCH (20:53)
[2020-10-23] VITALS (58 sets, daily range): BP systolic 76–148; BP diastolic 38–111
[2020-10-23] MEDS: IPRATROPIUM/ALBUTEROL 0.5-3(2.5)MG/3ML NEB HHN SCH ×6 (01:04→20:28)
[2020-10-23] MEDS: ACETYLCYSTEINE 100MG/ML 10% VIAL 4ML INH SCH ×4 (01:04→20:28)
[2020-10-23] MEDS: VASOPRESSIN 20 UNIT in SODIUM CHLORIDE 0.9% 99 ML IV PRN ×4 (01:33→22:08)
[2020-10-23] MEDS: PHENYLEPHRINE 100 MG in DEXT 5% WATER 240 ML IV PRN ×4 (03:49→20:01)
[2020-10-23] MEDS: MIDODRINE HCL 5MG TABLET PO SCH ×4 (06:00→18:00)
[2020-10-23 06:28] LABS: HEMATOCRIT. 25.1 % (42.0-52.0); MEAN CORPUSCULAR HEMOGLOBIN 30.3 pg (28.0-32.0); MEAN CORPUSCULAR VOLUME 95.3 fL (80.0-94.0); MEAN PLATELET VOLUME 9.2 fl (7.4-10.4); PLATELET 252 x1000/uL (130-400); RED BLOOD CELL COUNT 2.63 mill/uL (4.7-6.1); RED CELL DISTRIBUTION WIDTH 16.8 % (11.6-14.6)
[2020-10-23] MEDS: PANTOPRAZOLE SODIUM 40 MG/VIAL IV SCH (08:57)
[2020-10-23 09:00] LABS: BG BASE EXCESS -4.9 mmol/L (-2.0-2.0); BG FRACTION INSPIRED OXYGEN 100; BG HCO3 ACT 19.8 mmol/L (22.0-26.0); BG PCO2 35.9 mmHg (35.0-45.0); BG PO2 145.6 mmHg (75.0-100.0); BG SAMPLE SITE RIGHT RADIAL; BG VENT MODE PRVC-AC
[2020-10-23] MEDS: BLOOD SUGAR DIAGNOSTIC STRIP TEST SCH (09:00)
[2020-10-23] MEDS: NOREPINEPHRINE 32 MG in DEXT 5% WATER 218 ML IV PRN (10:27)
[2020-10-23] MEDS: MICAFUNGIN 100MG in NORMAL SALINE 100ML IV SCH (11:59)
[2020-10-23] MEDS: MEROPENEM 1,000 MG in SODIUM CHLORIDE 0.9% 100 ML IV SCH (12:00)
[2020-10-23 12:10] LABS: NUCLEATED RED BLOOD CELLS 2 /100 WBC
[2020-10-23 12:11] LABS: PLATELET ESTIMATE NORMAL
[2020-10-23] MEDS: TOTAL PARENTERAL NUTRITION 1,400 ML IV SCH (20:03)
[2020-10-23] MEDS ORDERED: FAT EMULSIONS 500 ML IV SCH (21:00)
[2020-10-24] VITALS (79 sets, daily range): BP systolic 42–170; BP diastolic 15–100
[2020-10-24] MEDS: IPRATROPIUM/ALBUTEROL 0.5-3(2.5)MG/3ML NEB HHN SCH ×6 (00:17→20:22)
[2020-10-24] MEDS: PHENYLEPHRINE 100 MG in DEXT 5% WATER 240 ML IV PRN ×3 (02:29→14:02)
[2020-10-24 05:18] LABS: BG BASE EXCESS -9.5 mmol/L (-2.0-2.0); BG CARBOXYHEMOGLOBIN 0.3 % (0.5-1.5); BG DEOXYHEMOGLOBIN 14.9 % (0.0-5.0); BG FRACTION INSPIRED OXYGEN 70; BG HCO3 ACT 17.4 mmol/L (22.0-26.0); BG METHEMOGLOBIN 0.2 % (0.0-1.5); BG OXYHEMOGLOBIN 84.6 % (94.0-97.0); BG PH 7.235 (7.350-7.450); BG PO2 53.5 mmHg (75.0-100.0); BG SAMPLE SITE RIGHT RADIAL; BG TOTAL HEMOGLOBIN 10.1 g/dL (12.0-18.0); BG VENT MODE PRVC
[2020-10-24] MEDS: MIDODRINE HCL 5MG TABLET PO SCH ×4 (06:00→17:02)
[2020-10-24] MEDS ORDERED: SODIUM BICARBONATE 8.4% 1 MEQ/ML 50ML SYR IV SCH (06:30)
[2020-10-24 07:34] LABS: HEMATOCRIT. 28.6 % (42.0-52.0); HEMOGLOBIN. 9.5 g/dL (14.0-18.0); MEAN CORPUSCULAR HEMOGLOBIN 32.4 pg (28.0-32.0); MEAN CORPUSCULAR VOLUME 97.5 fL (80.0-94.0); MEAN PLATELET VOLUME 10.2 fl (7.4-10.4); PLATELET 300 x1000/uL (130-400); RED BLOOD CELL COUNT 2.93 mill/uL (4.7-6.1); RED CELL DISTRIBUTION WIDTH 16.6 % (11.6-14.6)
[2020-10-24] MEDS: NOREPINEPHRINE 32 MG in DEXT 5% WATER 218 ML IV PRN ×2 (07:40→14:03)
[2020-10-24] MEDS: VASOPRESSIN 20 UNIT in SODIUM CHLORIDE 0.9% 99 ML IV PRN ×2 (07:40→14:03)
[2020-10-24] MEDS: ACETYLCYSTEINE 100MG/ML 10% VIAL 4ML INH SCH ×2 (07:53→16:14)
[2020-10-24] MEDS: PANTOPRAZOLE SODIUM 40 MG/VIAL IV SCH (08:36)
[2020-10-24] MEDS: BLOOD SUGAR DIAGNOSTIC STRIP TEST SCH (09:05)
[2020-10-24 09:34] LABS: BG BASE EXCESS -7.7 mmol/L (-2.0-2.0); BG DEOXYHEMOGLOBIN 44.9 % (0.0-5.0); BG FRACTION INSPIRED OXYGEN 100; BG METHEMOGLOBIN 0.3 % (0.0-1.5); BG OXYHEMOGLOBIN 54.8 % (94.0-97.0); BG PCO2 51.3 mmHg (35.0-45.0); BG PH 7.209 (7.350-7.450); BG PO2 32.3 mmHg (75.0-100.0); BG SAMPLE SITE RIGHT BRACHIAL; BG TOTAL HEMOGLOBIN 9.9 g/dL (12.0-18.0); BG VENT MODE VENT - AC/PRVC
[2020-10-24] MEDS: MICAFUNGIN 100MG in NORMAL SALINE 100ML IV SCH (11:20)
[2020-10-24] MEDS: FENTANYL CITRATE/PF 2,500 MCG in SODIUM CHLORIDE 0.9% 200 ML IV PRN (11:55)
[2020-10-24 12:52] LABS: BG BASE EXCESS -10.2 mmol/L (-2.0-2.0); BG CARBOXYHEMOGLOBIN 0.1 % (0.5-1.5); BG DEOXYHEMOGLOBIN 5.4 % (0.0-5.0); BG FRACTION INSPIRED OXYGEN 100; BG HCO3 ACT 16.7 mmol/L (22.0-26.0); BG METHEMOGLOBIN 0.2 % (0.0-1.5); BG OXYGEN SATURATION 94.6 % (92.0-98.5); BG OXYHEMOGLOBIN 94.3 % (94.0-97.0); BG PCO2 40.4 mmHg (35.0-45.0); BG PH 7.233 (7.350-7.450); BG PO2 80.7 mmHg (75.0-100.0); BG SAMPLE SITE RIGHT RADIAL; BG TOTAL HEMOGLOBIN 9.9 g/dL (12.0-18.0); BG TOTAL RESPIRATORY RATE 37 b/min; BG VENT MODE AC/PRVC
[2020-10-24] MEDS: MEROPENEM 1,000 MG in SODIUM CHLORIDE 0.9% 100 ML IV SCH (13:08)
[2020-10-24 13:38] LABS: NUCLEATED RED BLOOD CELLS 4 /100 WBC
[2020-10-24 13:39] LABS: PLATELET ESTIMATE NORMAL
[2020-10-24] MEDS ORDERED: SODIUM BICARBONATE 8.4% 1 MEQ/ML 50ML SYR IV NR (13:45)
[2020-10-24] MEDS ORDERED: WATER IV SCH (15:00)
[2020-10-24] MEDS ORDERED: DEXT 5% IV SCH (15:00)
[2020-10-24] MEDS ORDERED: AMIKACIN SULFATE IV SCH (15:00)
[2020-10-24] MEDS: TOTAL PARENTERAL NUTRITION 1,400 ML IV SCH (21:18)
[2020-10-25] VITALS (10 sets, daily range): BP systolic 35–104; BP diastolic 15–59
[2020-10-25] MEDS: MIDODRINE HCL 5MG TABLET PO SCH
[2020-10-25] MEDS: ACETYLCYSTEINE 100MG/ML 10% VIAL 4ML INH SCH (00:06)
[2020-10-25] MEDS: IPRATROPIUM/ALBUTEROL 0.5-3(2.5)MG/3ML NEB HHN SCH (00:06)
[2020-10-25] MEDS ORDERED: DOPAMINE 400MG/250ML PREMIX 250 ML IV PRN (02:00)
== END 2020-10-25 01:00 | DRG 853 ==
LOC: OR 05:54 → SUPCPDRO 11:40 → CVICU 16:23
PROVIDERS: ADMIT Internal Medicine; ATTEND Surgery
PROC: 0DTP0ZZ Resection of Rectum, Open Approach (ICD-10-PCS; principal; 2020-10-01)
PROC: 0DBN0ZZ Excision of Sigmoid Colon, Open Approach (ICD-10-PCS; 2020-10-01)
PROC: 5A1955Z Respiratory Ventilation, Greater than 96 Consecutive Hours (ICD-10-PCS; 2020-10-01)
PROC: 06HY33Z Insertion of Infusion Device into Lower Vein, Percutaneous Approach (ICD-10-PCS; 2020-10-01)
PROC: B54CZZA Ultrasonography of Left Lower Extremity Veins, Guidance (ICD-10-PCS; 2020-10-01)
PROC: 30233N1 Transfusion of Nonautologous Red Blood Cells into Peripheral Vein, Percutaneous Approach (ICD-10-PCS; 2020-10-01)
PROC: 5A1D70Z Performance of Urinary Filtration, Intermittent, Less than 6 Hours Per Day (ICD-10-PCS; 2020-10-02)
PROC: 5A1D70Z Performance of Urinary Filtration, Intermittent, Less than 6 Hours Per Day (ICD-10-PCS; 2020-10-05)
PROC: 5A1D70Z Performance of Urinary Filtration, Intermittent, Less than 6 Hours Per Day (ICD-10-PCS; 2020-10-07)
PROC: 5A1D70Z Performance of Urinary Filtration, Intermittent, Less than 6 Hours Per Day (ICD-10-PCS; 2020-10-08)
PROC: 5A09357 Assistance with Respiratory Ventilation, Less than 24 Consecutive Hours, Continuous Positive Airway Pressure (ICD-10-PCS; 2020-10-09)
PROC: 5A1D70Z Performance of Urinary Filtration, Intermittent, Less than 6 Hours Per Day (ICD-10-PCS; 2020-10-10)
PROC: 5A09357 Assistance with Respiratory Ventilation, Less than 24 Consecutive Hours, Continuous Positive Airway Pressure (ICD-10-PCS; 2020-10-11)
PROC: 5A1D70Z Performance of Urinary Filtration, Intermittent, Less than 6 Hours Per Day (ICD-10-PCS; 2020-10-12)
PROC: 5A1D70Z Performance of Urinary Filtration, Intermittent, Less than 6 Hours Per Day (ICD-10-PCS; 2020-10-14)
PROC: 5A1D70Z Performance of Urinary Filtration, Intermittent, Less than 6 Hours Per Day (ICD-10-PCS; 2020-10-16)
PROC: 5A1D70Z Performance of Urinary Filtration, Intermittent, Less than 6 Hours Per Day (ICD-10-PCS; 2020-10-18)
PROC: 05HY33Z Insertion of Infusion Device into Upper Vein, Percutaneous Approach (ICD-10-PCS; 2020-10-20)
PROC: B54MZZA Ultrasonography of Right Upper Extremity Veins, Guidance (ICD-10-PCS; 2020-10-20)
PROC: 5A1D70Z Performance of Urinary Filtration, Intermittent, Less than 6 Hours Per Day (ICD-10-PCS; 2020-10-20)
PROC: 5A1D70Z Performance of Urinary Filtration, Intermittent, Less than 6 Hours Per Day (ICD-10-PCS; 2020-10-22)
PROC: 0BH17EZ Insertion of Endotracheal Airway into Trachea, Via Natural or Artificial Opening (ICD-10-PCS; 2020-10-22)
PROC: 5A1945Z Respiratory Ventilation, 24-96 Consecutive Hours (ICD-10-PCS; 2020-10-22)
PROC: 5A1D70Z Performance of Urinary Filtration, Intermittent, Less than 6 Hours Per Day (ICD-10-PCS; 2020-10-24)
DX: A41.9 Sepsis, unspecified organism (principal); K57.21 Diverticulitis of large intestine with perforation and abscess with bleeding; N18.6 End stage renal disease; R65.21 Severe sepsis with septic shock; K65.9 Peritonitis, unspecified; J80 Acute respiratory distress syndrome; I50.32 Chronic diastolic (congestive) heart failure; I13.2 Hypertensive heart and chronic kidney disease with heart failure and with stage 5 chronic kidney disease, or end stage renal disease; E87.4 Mixed disorder of acid-base balance; E46 Unspecified protein-calorie malnutrition; B49 Unspecified mycosis; E87.1 Hypo-osmolality and hyponatremia; G93.40 Encephalopathy, unspecified; E87.6 Hypokalemia; E78.00 Pure hypercholesterolemia, unspecified; E78.5 Hyperlipidemia, unspecified; E86.1 Hypovolemia; D63.8 Anemia in other chronic diseases classified elsewhere; D69.6 Thrombocytopenia, unspecified; E83.39 Other disorders of phosphorus metabolism; E83.42 Hypomagnesemia; I95.81 Postprocedural hypotension; R13.10 Dysphagia, unspecified; Z85.038 Personal history of other malignant neoplasm of large intestine; Z99.2 Dependence on renal dialysis; Z78.1 Physical restraint status; Z68.31 Body mass index [BMI] 31.0-31.9, adult; Z82.49 Family history of ischemic heart disease and other diseases of the circulatory system; Z90.49 Acquired absence of other specified parts of digestive tract
CPT/HCPCS: 36415; 36600; 70486; 71045; 74018; 74176; 76881; 76937; 80048; 80053; 80069; 80150; 80202; 82375; 82465; 82805; 82962; 83036; 83605; 83735; 83880; 84100; 84145; 84478; 84484; 85014; 85018; 85025; 85027; 86705; 86709; 86803; 86850; 86900; 86920; 87070; 87106; 87340; 87426; 88307; 92610; 93005; 93306; 93970; 94002; 94003; 94640; C1725; C9113; J0278; J0330; J0690; J0692; J0885; J1200; J1265; J1450; J2185; J2248; J2250; J2270; J2370; J2405; J2704; J2710; J2765; J3010; J3370; J3430; J3475; J3480; J3490; J7030; J7040; J7042; J7050; J7060; J7608; L3908; P9016; P9021